=== PATIENT | female | born 1935 | race Caucasian/White ===

== ENCOUNTER 2018-02-27 11:55 | Inpatient (IN) | payer MEDICARE ==
[~2018-02-27] VITALS: Ht 162.6 cm; Wt 48.3 kg
--- NOTE | 2018-02-27 12:24 | PHYS DOC ---
Past History Past Medical History: Hypertension, Hypothyroid Adult General Chief Complaint Chief Complaint: PSYCH EVALUATION HPI HPI Patient is a [82] year old female who presents with anxiety. Patient is here for medical clearance for the [facility] unit. Patient has had anxiety issues for the past 4 years that got worse this time of the year since her 4 years ago in February. Patient denies any self- medication with drugs or alcohol beyond what is prescribed. Patient denies any chest pain or palpitations. Patient denies any self-harm or homicidal ideation. Patient receives minimal relief with her prescribed benzodiazepines.[] Review of Systems Review of Systems Constitutional: Denies fever or chills [] Eyes: Denies change in visual acuity, redness, or eye pain [] HENT: Denies nasal congestion or sore throat [] Respiratory: Denies cough or shortness of breath [] Cardiovascular: No chest pain or palpitations[] GI: Denies abdominal pain, nausea, vomiting, bloody stools or diarrhea [] : Denies dysuria or hematuria [] Musculoskeletal: Denies back pain or joint pain [] Integument: Denies rash or skin lesions [] Neurologic: Denies headache, focal weakness or sensory changes [] Endocrine: Denies polyuria or polydipsia [] All other systems were reviewed and found to be within normal limits, except as documented in this note. Allergies Allergies Allergies Coded Allergies Type Severity Reaction Last Updated Verified Amufnse-Smx-Tsz Reductase Inhibitor Allergy Unknown 02/27/18 Yes Sulfa (Sulfonamide Antibiotics) Allergy Unknown 02/27/18 Yes ciprofloxacin Allergy Unknown 02/27/18 Yes tramadol Allergy Unknown 02/27/18 Yes Physical Exam Physical Exam Constitutional: Well developed, well nourished, no acute distress, non-toxic appearance. [] HENT: Normocephalic, atraumatic, bilateral external ears normal, oropharynx moist, no oral exudates, nose normal. [] Eyes: PERRLA, EOMI, conjunctiva normal, no discharge. [] Neck: Normal range of motion, no tenderness, supple, no stridor. [] Cardiovascular:Heart rate regular rhythm, no murmur [] Lungs & Thorax: Bilateral breath sounds clear to auscultation [] Abdomen: Bowel sounds normal, soft, no tenderness, no masses, no pulsatile masses. [] Skin: Warm, dry, no erythema, no rash. [] Back: No tenderness, no CVA tenderness. [] Extremities: No tenderness, no cyanosis, no clubbing, ROM intact, no edema. [] Neurologic: Alert and oriented X 3, normal motor function, normal sensory function, no focal deficits noted. [] Psychologic: Affect normal, judgement normal, mood normal. [] EKG EKG EKG shows a sinus rhythm at 72/m occasional PAC. Normal axis, QTC of 411 milliseconds, no ST elevation.[] Radiology/Procedures Radiology/Procedures [] Course & Med Decision Making Course & Med Decision Making Pertinent Labs and Imaging studies reviewed. (See chart for details) ED course: Patient arrived, was placed in bed, and tolerated exam well. Patient remained stable throughout her emergency department stay. Discussed laboratory findings with patient and family who voiced understanding. All questions were answered Medical decision making: Patient was here for medical clearance for the geriatric mental health unit. There is no evidence of a medical reason for admission at this time. TSH level is pending given her history of hypothyroidism. Patient appears to be stable for mental health evaluation and treatment.[] Dragon Disclaimer Dragon Disclaimer This electronic medical record was generated, in whole or in part, using a voice recognition dictation system. Departure Departure: Impression: Primary Impression: Anxiety Disposition: ADMITTED INPATIENT Admitting Physician: Other Condition: STABLE Referrals: NON,STAFF (PCP) SANDER OGLESBY DO Feb 27, 2018 12:24
[2018-02-27 12:31] LABS: BASO % 1 % (0-3); EOS # 0.1 x10^3/uL (0.0-0.7); EOS % 2 % (0-3); HEMATOCRIT 44.6 % (36.0-47.0); LYMPH % 16 % (24-48); MEAN CORPUSCULAR HEMOGLOBIN 29 pg (25-35); MEAN CORPUSCULAR HGB CONC 34 g/dL (31-37); MEAN CORPUSCULAR VOLUME 87 fL (79-100); MONO # 0.8 x10^3/uL (0.0-1.1); MONO % 12 % (0-9); NEUT # 4.5 x10^3uL (1.8-7.7); NEUT % 70 % (31-73); PLATELET COUNT 345 x10^3/uL (140-400); RED BLOOD COUNT 5.14 x10^6/uL (3.50-5.40); RED CELL DISTRIBUTION WIDTH 13.9 % (11.5-14.5); WHITE BLOOD COUNT 6.4 x10^3/uL (4.0-11.0)
[2018-02-27 12:42] LABS: ALBUMIN 3.9 g/dL (3.4-5.0); CALCIUM 9.7 mg/dL (8.5-10.1); GFR 53.3; MAGNESIUM 2.3 mg/dL (1.8-2.4); POTASSIUM 3.5 mmol/L (3.5-5.1); TOTAL BILIRUBIN 0.2 mg/dL (0.2-1.0); TOTAL PROTEIN 7.9 g/dL (6.4-8.2)
[2018-02-27 13:24] LABS: BILIRUBIN,URINE NEG (NEG); CLARITY,URINE CLEAR; COLOR,URINE STRAW; GLUCOSE,URINE NEG (NEG)
[2018-02-27 13:25] LABS: BACTERIA,URINE 0 /HPF (0-FEW); NITRITE,URINE NEG (NEG); RBC,URINE 0 /HPF (0-2); SQUAMOUS EPITHELIAL CELL,UR OCC /LPF; UROBILINOGEN,URINE 0.2 mg/dL (0.2 mg/dL); WBC,URINE RARE /HPF (0-4)
[2018-02-27] MEDS ORDERED: METHYL SALICYLATE/MENTHOL TOPICAL OINTMENT 29GM TUBE. TP PRN (14:45)
[2018-02-27] MEDS ORDERED: MAGNESIUM HYDROXIDE 2,400 MG/30 ML ORAL.SUSP. PO PRN (14:45)
[2018-02-27] MEDS ORDERED: ACETAMINOPHEN 325 MG TABLET PO PRN (14:45)
[2018-02-27] MEDS ORDERED: LEVO25TA4 PO (15:01)
[2018-02-27] MEDS ORDERED: MIRT30TA PO (15:01)
[2018-02-27] MEDS ORDERED: ALPR2TAB2 PO (15:01)
[2018-02-27] MEDS ORDERED: HYDR-2155 PO (15:01)
[2018-02-27] MEDS ORDERED: DOCU-109 PO (15:01)
[2018-02-27] MEDS ORDERED: METO50TA29 PO (15:01)
[2018-02-27] MEDS ORDERED: AMLO5TAB7 PO (15:01)
[2018-02-27] MEDS ORDERED: LOSA100T14 PO (15:01)
[2018-02-27] MEDS ORDERED: POLY17PO5 PO (15:01)
[2018-02-27] MEDS ORDERED: CLON1TAB PO (15:01)
[2018-02-27] MEDS ORDERED: SUCR1TAB PO (15:01)
[2018-02-27] MEDS ORDERED: PARO40TA3 PO (15:01)
[2018-02-27] MEDS ORDERED: HYDROcodone/APAP 5/325MG 1 TAB TABLET PO PRN (15:15)
[2018-02-27] MEDS ORDERED: METOPROLOL SUCCINATE PO PRN (15:15)
[2018-02-27] MEDS ORDERED: CLONAZEPAM PO PRN (15:15)
[2018-02-27] MEDS: DOCUSATE SODIUM 100 MG CAPSULE PO SCH (15:30)
[2018-02-27] MEDS ORDERED: METO25TA4 PO (15:54)
[2018-02-27] MEDS ORDERED: SENN-37 PO (15:54)
[2018-02-27 15:55] VITALS: BP 122/74
[2018-02-27] MEDS ORDERED: SENNOSIDES/DOCUSATE 8.6/50MG TABLET. PO PRN (16:15)
[2018-02-27] MEDS ORDERED: AMLO10TA6 PO (16:27)
[2018-02-27] MEDS ORDERED: MIRTAZAPINE 30 MG TABLET PO SCH (17:00)
[2018-02-27] MEDS ORDERED: NON FORMULARY ITEM (Alprazolam (Xanax) 1 TAB) PO SCH (17:00)
[2018-02-27] MEDS: clonazePAM 1 MG TABLET PO SCH ×2 (18:20→20:37)
[2018-02-27 20:36] VITALS: BP 114/75
[2018-02-27] MEDS: LOSARTAN 50 MG TABLET. PO SCH (20:37)
[2018-02-27] MEDS: MIRTAZAPINE 30 MG TABLET PO SCH (20:37)
[2018-02-27] MEDS ORDERED: SUCRALFATE 1 GM TABLET. PO SCH (21:00)
[2018-02-28] MEDS: MAG HYDROX/AL HYDROX/SIMETH 30 ML ORAL.SUSP PO PRN (00:27)
[2018-02-28 05:53] VITALS: BP 100/65
[2018-02-28] MEDS ORDERED: NON FORMULARY ITEM (Levothyroxine Sodium 1 TAB) PO SCH (06:00)
[2018-02-28] MEDS: LEVOTHYROXINE 25 MCG TABLET. PO SCH (06:20)
[2018-02-28] MEDS: DOCUSATE SODIUM 100 MG CAPSULE PO SCH (07:53)
[2018-02-28] MEDS: LOSARTAN 50 MG TABLET. PO SCH ×2 (07:53→20:40)
[2018-02-28] MEDS: clonazePAM 1 MG TABLET PO SCH ×2 (07:55→14:00)
[2018-02-28] MEDS ORDERED: amLODIPine BESYLATE 10 MG TABLET PO PRN (09:00)
[2018-02-28] MEDS ORDERED: POLYETHYLENE GLYCOL 3350 17 GM PACKET. PO SCH (09:00)
[2018-02-28] MEDS ORDERED: NON FORMULARY ITEM (Paroxetine Hcl 1 TAB) PO SCH (09:00)
[2018-02-28] MEDS ORDERED: LOSARTAN 50 MG TABLET. PO SCH (09:00)
[2018-02-28] MEDS ORDERED: AMLODIPINE BESYLATE PO SCH (09:00)
[2018-02-28 09:58] VITALS: BP 102/67
--- NOTE | 2018-02-28 10:16 | RAD ---
Right wrist x-rays 3 views HISTORY: Fall, right wrist pain. FINDINGS: No fracture or dislocation of the radius. Mild osteoarthritic change with mild osteophyte of the first carpal metacarpal joint. Bone demineralization may be osteopenia or osteoporosis. The soft tissues are unremarkable. IMPRESSION: No acute osseous injury. Right ankle x-rays 3 views HISTORY: Fall, ankle twisting injury, ankle pain. FINDINGS: Mild bone demineralization could be osteopenia or osteoporosis. There is a subtle trabecular bone lucency of the lateral malleolus inferiorly with extension into the lateral cortex on the oblique film raising suspicion of a nondisplaced acute traumatic fracture. Medial malleolus and tibial plafond intact. No talus osteochondral lesion evident. IMPRESSION: Subtle linear lucency likely a hairline acute traumatic fracture of the lateral malleolus. No distracted fracture evident. Electronically signed by: Bora Burger MD (02/28/2018 10:12 AM) [facility]
[2018-02-28 15:07] LABS: THYROXINE 9.6 ug/dL (4.5-12.0)
[2018-02-28] MEDS: HYDROcodone/APAP 5/325MG 1 TAB TABLET PO PRN (15:36)
[2018-02-28 16:15] VITALS: BP 118/73
[2018-02-28] MEDS: SENNOSIDES/DOCUSATE 8.6/50MG TABLET. PO SCH (18:06)
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
[2018-02-28 20:40] VITALS: BP 102/69
[2018-02-28] MEDS: clonazePAM 2 MG TABLET PO SCH (20:42)
[2018-02-28] MEDS: GABAPENTIN 100 MG CAPSULE. PO SCH (20:42)
[2018-02-28] MEDS: MIRTAZAPINE 30 MG TABLET PO SCH (20:42)
--- NOTE | 2018-02-28 21:30 | CONS ---
DATE OF CONSULTATION: 02/28/2018 REASON FOR CONSULTATION: Medical management. HISTORY OF PRESENT ILLNESS: The patient was is an 82-year-old female patient, who was admitted to [facility] for anxiety. She apparently has been having issues with anxiety for the last 30 years. She was admitted in 2011 to [place] for about 16 days and apparently her about 4 years ago around this time of the year and the patient, however, denied any self medication with drugs or alcohol beyond what is prescribed. Denied any chest pain or palpitation and was admitted. Denied any self-harm or homicidal ideation and she received minimal relief from her prescribed benzodiazepine, and therefore, was admitted to this unit for inpatient psychiatric stabilization. PAST MEDICAL HISTORY: Significant for hypertension, hyperlipidemia, left coronary artery disease status post PCI with stent deployment, hypothyroidism, TIA x 2. PAST SURGICAL HISTORY: Significant for cholecystectomy, partial small-bowel resection, drainage of rectal abscess, bladder sling, appendectomy and unilateral oophorectomy. She also fell and broke her right shoulder and did not require any surgical treatment. ALLERGIES: SHE IS ALLERGIC TO STATINS. SHE IS ALLERGIC TO SULFA, CIPROFLOXACIN, GLUTEN, LACTOSE, TRAMADOL. MEDICATIONS: She is currently on following medications: She is on metoprolol tartrate 25 mg twice a day, amlodipine besylate 5 mg once a day, amlodipine 10 mg once a day, losartan potassium 100 mg twice a day, clonazepam 1 mg 4 times a day, mirtazapine 45 mg at bedtime, Senna-S 1 tablet once a day, levothyroxine sodium 25 mcg once a day. FAMILY HISTORY: She has one brother at the age of 60 because of myocardial infarction. Her father at the age of 65 because of lung cancer and mother in her early 80s because of myocardial infarction. SOCIAL HISTORY: She is . She has 2 sons and 1 daughter. She never smoked, does not drink alcohol or use any recreational drugs. She is retired after working multiple jobs. REVIEW OF SYSTEMS: As per history of present illness. PHYSICAL EXAMINATION GENERAL: When I examined her, she looked well and was clearly in no apparent respiratory distress. No pallor, jaundice, cyanosis, or thyromegaly. No jugular venous distension. No limb edema. VITAL SIGNS: Her heart rate was 71, blood pressure 100/65, temperature was 97.9, respiratory rate was 16 and oxygen saturation was 97%. HEAD, EYES, EARS, NOSE AND THROAT: Showed normocephalic, atraumatic. NECK: Supple. HEART: Showed normal first and second heart sounds. No gallop, rub or murmur. CHEST: Clear to auscultation. No crepitation or rhonchi. ABDOMEN: Distended, soft, nontender. No guarding or rigidity. No organomegaly. Hernial orifice intact. Bowel sounds normal. NEUROLOGIC: She was awake, alert, responding appropriately. All cranial nerves intact. EXTREMITIES: She moves extremities without difficulty. She unfortunately fell sustaining a hairline fracture of her lateral malleolus with no distracted fracture evident and we spoke with Dr. Collazo, the orthopedic surgeon who recommended using Cam boot and she can weightbear as tolerated and to see him in 2 weeks in his clinic. LABORATORY DATA: Showed a white cell count of 6400, hemoglobin 15, hematocrit 45, MCV 87 and platelet count of 345,000. Her chemistry showed a serum sodium 142, potassium 3.5, chloride 104, bicarbonate 27, anion gap of 11, BUN 11, creatinine 1, estimated GFR was 53 mL per minute. Her glucose was 93, calcium was 9.7, magnesium 2.3. Serum iron 60, TIBC was 275. Iron saturation was 22%. Her total bilirubin, AST, ALT, alkaline phosphatase were normal. Total protein was 7.9, albumin was 3.9. Her triglycerides were 92. Total cholesterol 187, LDL was 107, VLDL was 18 and HDL cholesterol was 62, the ratio was 3. Her TSH and total T4 and total T3 are all within normal range. Urinalysis was essentially unremarkable and her wrist x-ray showed that there is no acute osseous injury; however, the x-ray of her right ankle joint showed that she has a subtle linear lucency likely hairline acute traumatic fracture of the lateral malleolus for which we ordered a Cam boot. IMPRESSION AND PLAN: So all in all, this is an 82-year-old female patient, who was admitted with anxiety. All her lab works and vital signs are within acceptable range. I will obviously review all the lab works that are still pending at the time of this dictation and make any necessary recommendation. Thank you, Dr. Strickland for allowing me to participate in the care of this patient. KELSIE GEE MD DR: Grace JOB#: [id number] / [id number]
[2018-03-01 00:10] LABS: HEMOGLOBIN A1C 5.3 % (4.8-5.6)
[2018-03-01 05:55] VITALS: BP 121/82
[2018-03-01] MEDS: LEVOTHYROXINE 25 MCG TABLET. PO SCH (06:27)
[2018-03-01] MEDS: DOCUSATE SODIUM 100 MG CAPSULE PO SCH (08:07)
[2018-03-01] MEDS: clonazePAM 1 MG TABLET PO SCH (08:07)
[2018-03-01] MEDS: GABAPENTIN 100 MG CAPSULE. PO SCH ×2 (08:07→20:47)
[2018-03-01] MEDS: SENNOSIDES/DOCUSATE 8.6/50MG TABLET. PO SCH (08:07)
[2018-03-01] MEDS: LOSARTAN 50 MG TABLET. PO SCH ×2 (08:08→20:45)
[2018-03-01 15:49] VITALS: BP 110/74
[2018-03-01] MEDS: busPIRone 5 MG TABLET. PO SCH ×2 (16:55→20:48)
[2018-03-01] MEDS: MIRTAZAPINE 30 MG TABLET PO SCH (20:44)
[2018-03-01] MEDS: DIVALPROEX 125 MG CAP.SPRINK PO SCH (20:47)
[2018-03-01] MEDS: clonazePAM 2 MG TABLET PO SCH (20:47)
--- NOTE | 2018-03-01 23:50 | PN ---
DATE: 03/01/2018 SUBJECTIVE: The patient was seen today. I met with the staff and chart reviewed. The patient continues to be anxious and worried, staying in bed, continues to complain of severe anxiety. She is also irritable and wells. The patient is also very obsessive and compulsive with the thinking pattern. The patient focused on number of the pills she has been taking and also the patient still complains that she is still anxious and needing more medications. OBSERVATION: VITAL SIGNS: Temperature 97.9, blood pressure 121/82, pulse 82, respirations 16, O2 sat 97%. Slept about 8 hours last night. The patient's appetite is fair. The patient still has difficulty walking because of the pain in her right ankle. Apparently, she twisted her ankle. Apparently, she has a hairline fracture of the right malleolus. The patient appears depressed. The patient also irritable and wells. The patient also having problems with concentration and thinking. The patient's current medications include Depakote added today 125 mg b.i.d. because of the patient's complaint of intense anxiety, not able to relax. The patient was also started on BuSpar 5 mg q.i.d. The patient is also on gabapentin 100 mg b.i.d. She is also on Klonopin 1 mg in the morning and 2 mg at night, mirtazapine 45 mg at night. The patient made aware of her past dependence on benzodiazepines. Apparently, she was taking Xanax 6 mg daily for the past 30 years. Later on, it was switched to Klonopin. She was taking up to 4 mg daily. The patient is struggling to deal with the decrease of the benzodiazepines and the patient is also aware that she has been dependent on it for many, many years. LABORATORY DATA: The patient's lab reviewed. No significant change since admission. ASSESSMENT: Dysthymic disorder, generalized anxiety disorder, benzodiazepine dependence, mood disorder, unspecified. PLAN: To continue with the current treatment plan and we will continue to evaluate her medication side effects. NICO DOS SANTOS MD DR: CHAIM/rico JOB#: [id number] / [id number]
[2018-03-02] MEDS: MAG HYDROX/AL HYDROX/SIMETH 30 ML ORAL.SUSP PO PRN ×2 (02:30→08:33)
[2018-03-02 05:46] VITALS: BP 119/82
[2018-03-02] MEDS: LEVOTHYROXINE 25 MCG TABLET. PO SCH (05:57)
--- NOTE | 2018-03-02 06:05 | EKG ---
[address] [address] Test Date: 2018-03-02 Test Time: 06:02:24 Pat Name: ETTA ORTIZ Department: Room: [address] [place] [address] Gender: F Skin Washer: : 1935 Requested By: KELSIE GEE Order Number: [id number] Reading MD: Dread Mitchell Measurements Intervals [place] Rate: 65 P: ID: QRS: 14 QRSD: 58 T: 133 QT: 370 QTc: 385 Interpretive Statements SINUS RHYTHM LOW LIMB LEAD VOLTAGE Electronically Signed On 03-09-2018 9:54:56 SALESPERSON NECKTIES by Dread Mitchell
[2018-03-02] MEDS: DOCUSATE SODIUM 100 MG CAPSULE PO SCH (08:24)
[2018-03-02] MEDS: DIVALPROEX 125 MG CAP.SPRINK PO SCH ×2 (08:24→20:33)
[2018-03-02] MEDS: amLODIPine BESYLATE 5 MG TABLET PO PRN (08:24)
[2018-03-02] MEDS: GABAPENTIN 100 MG CAPSULE. PO SCH ×2 (08:24→20:33)
[2018-03-02] MEDS: SENNOSIDES/DOCUSATE 8.6/50MG TABLET. PO SCH (08:24)
[2018-03-02] MEDS: clonazePAM 1 MG TABLET PO SCH (08:24)
[2018-03-02] MEDS: LOSARTAN 50 MG TABLET. PO SCH ×2 (08:25→20:33)
[2018-03-02] MEDS: busPIRone 5 MG TABLET. PO SCH ×4 (08:26→20:33)
[2018-03-02 16:13] VITALS: BP 114/80
[2018-03-02] MEDS: MIRTAZAPINE 30 MG TABLET PO SCH (20:33)
[2018-03-02] MEDS: clonazePAM 2 MG TABLET PO SCH (20:33)
--- NOTE | 2018-03-02 23:38 | PN ---
DATE: 03/02/2018 SUBJECTIVE: The patient was seen today, met with the staff. The patient continues to be anxious, worried, but slight improvement. She is also having some mood swings, irritability. The patient is mainly focusing on her physical complaints. The patient is able to walk with a walker. OBSERVATION: VITAL SIGNS: Temperature 97.9, blood pressure 119/82, pulse 69, respirations 18, and O2 sat 95%. Slept about 5 hours last night. The patient admits to feeling depressed. The patient states she is in chronic pain. The patient is also having difficulty with concentration at times. The patient is constantly focused on her physical complaints. The patient is not admitting to having any psychotic symptoms at this time. MEDICATIONS: Reviewed. Currently on Depakote 125 mg b.i.d., BuSpar 5 mg q.i.d., Klonopin 1 mg daily, gabapentin 100 mg b.i.d. Also, clonazepam 2 mg at night, mirtazapine 45 mg at night. The patient is not having any side effects to the medications. The patient is aware that her Klonopin will be gradually decreased over a period of time and substitute other medications to control her symptoms, which are not addictive. The patient has a long history of benzodiazepine dependence. The patient has not had any falls. The patient is most of the time cooperative, taking her medications, but she is curious, wanting to know everything what she is taking and not trusting anyone. ASSESSMENT: 1. Dysthymic disorder. 2. Generalized anxiety disorder. 3. Benzodiazepine dependence. 4. Cognitive disorder, mild. PLAN: To continue with the treatment. NICO DOS SANTOS MD DR: CHAIM/rico JOB#: [id number] / [id number]
[2018-03-03 05:47] VITALS: BP 114/77
[2018-03-03] MEDS: SENNOSIDES/DOCUSATE 8.6/50MG TABLET. PO SCH (07:51)
[2018-03-03] MEDS: LEVOTHYROXINE 25 MCG TABLET. PO SCH (07:51)
[2018-03-03] MEDS: busPIRone 5 MG TABLET. PO SCH ×4 (07:51→19:22)
[2018-03-03] MEDS: DOCUSATE SODIUM 100 MG CAPSULE PO SCH (07:51)
[2018-03-03] MEDS: LOSARTAN 50 MG TABLET. PO SCH ×2 (07:52→19:23)
[2018-03-03] MEDS: GABAPENTIN 100 MG CAPSULE. PO SCH ×2 (07:52→19:22)
[2018-03-03] MEDS: DIVALPROEX 125 MG CAP.SPRINK PO SCH ×2 (07:52→19:22)
[2018-03-03] MEDS: clonazePAM 1 MG TABLET PO SCH (07:53)
[2018-03-03] MEDS: MAG HYDROX/AL HYDROX/SIMETH 30 ML ORAL.SUSP PO PRN ×2 (11:55→22:01)
[2018-03-03 16:01] VITALS: BP 111/73
[2018-03-03] MEDS: MIRTAZAPINE 30 MG TABLET PO SCH (19:22)
[2018-03-03] MEDS: clonazePAM 2 MG TABLET PO SCH (19:23)
--- NOTE | 2018-03-04 02:36 | PN ---
DATE: 03/03/2018 SUBJECTIVE: The patient was seen today, met with the staff, chart reviewed. The patient continues to have mood swings, irritability and somatic preoccupation, having multiple physical complaints. The patient is able to walk with a walker. OBSERVATION: VITAL SIGNS: Temperature 97, blood pressure 114/77, pulse 60, respirations 16, O2 sat 95%. MENTAL STATUS: Slept about 7 hours last night. The patient's appetite has improved. The patient is still having difficulty with her attention span and concentration, having problems focusing. The patient constantly preoccupied with her physical complaints. MEDICATIONS: Reviewed. LABORATORY DATA: Reviewed. Not having any side effects. Continue with the current medications. The patient continues to have anxiety, restlessness feeling insecure, worried and having different physical complaints. PLAN: Continue with the treatment. NICO DOS SANTOS MD DR: CHAIM/rico JOB#: [id number] / [id number]
[2018-03-04] MEDS: MAG HYDROX/AL HYDROX/SIMETH 30 ML ORAL.SUSP PO PRN ×2 (04:05→20:46)
[2018-03-04 05:35] VITALS: BP 113/79
[2018-03-04] MEDS: LEVOTHYROXINE 25 MCG TABLET. PO SCH (06:05)
[2018-03-04] MEDS: DOCUSATE SODIUM 100 MG CAPSULE PO SCH (07:55)
[2018-03-04] MEDS: clonazePAM 1 MG TABLET PO SCH (07:56)
[2018-03-04] MEDS: SENNOSIDES/DOCUSATE 8.6/50MG TABLET. PO SCH (07:56)
[2018-03-04] MEDS: GABAPENTIN 100 MG CAPSULE. PO SCH ×2 (07:56→19:44)
[2018-03-04] MEDS: DIVALPROEX 125 MG CAP.SPRINK PO SCH ×2 (07:56→19:44)
[2018-03-04] MEDS: busPIRone 5 MG TABLET. PO SCH (07:56)
[2018-03-04] MEDS: LOSARTAN 50 MG TABLET. PO SCH ×2 (07:56→19:45)
[2018-03-04] MEDS: busPIRone 10 MG TABLET. PO SCH ×2 (13:07→19:44)
[2018-03-04 16:32] VITALS: BP 99/70
--- NOTE | 2018-03-04 19:03 | PN ---
DATE: 03/04/2018 SUBJECTIVE: The patient was seen today, met with the staff, chart reviewed. The patient continues to have high level of anxiety, multiple somatic complaints. The patient is able to walk with a walker. OBSERVATION: VITAL SIGNS: Temperature 97.4, blood pressure 113/79, pulse 69, respirations 16, O2 sats is 96%. Slept about 8 hours last night. The patient's medications reviewed and also, lab reviewed. The patient apparently making some progress, still preoccupied with the past issues, constantly worrying and drooling in the past. ASSESSMENT: 1. Dysthymic disorder. 2. Generalized anxiety disorder. 3. Benzodiazepine dependence. 4. Cognitive disorder, mild. PLAN: Continue with the treatment. NICO DOS SANTOS MD DR: CHAIM/rico JOB#: [id number] / [id number]
[2018-03-04] MEDS: clonazePAM 2 MG TABLET PO SCH (19:44)
[2018-03-04] MEDS: MIRTAZAPINE 30 MG TABLET PO SCH (19:44)
[2018-03-05] MEDS: LEVOTHYROXINE 25 MCG TABLET. PO SCH (05:55)
[2018-03-05 06:06] VITALS: BP 96/61
[2018-03-05] MEDS: GABAPENTIN 100 MG CAPSULE. PO SCH ×2 (07:50→20:02)
[2018-03-05] MEDS: clonazePAM 1 MG TABLET PO SCH (07:51)
[2018-03-05] MEDS: SENNOSIDES/DOCUSATE 8.6/50MG TABLET. PO SCH (07:51)
[2018-03-05] MEDS: busPIRone 10 MG TABLET. PO SCH ×3 (07:51→20:02)
[2018-03-05] MEDS: DOCUSATE SODIUM 100 MG CAPSULE PO SCH (07:51)
[2018-03-05] MEDS: LOSARTAN 50 MG TABLET. PO SCH ×2 (07:51→20:03)
[2018-03-05] MEDS: DIVALPROEX 125 MG CAP.SPRINK PO SCH ×2 (07:52→20:02)
[2018-03-05 15:56] VITALS: BP 100/69
[2018-03-05] MEDS: MIRTAZAPINE 30 MG TABLET PO SCH (20:02)
[2018-03-05] MEDS: clonazePAM 2 MG TABLET PO SCH (20:02)
--- NOTE | 2018-03-05 22:08 | PN ---
DATE: 03/05/2018 SUBJECTIVE: The patient was seen today, met with the staff, chart reviewed. Staff reports no major behavior problems today. She has been pleasant, withdrawn, cooperative, compliant with the treatment. She slept well last night. OBSERVATION: VITAL SIGNS: Temperature 97.8, blood pressure 100/69, pulse 73, respirations 16, O2 sat 96%. The patient slept about 7 hours last night. The patient's appetite improved. ASSESSMENT: Dysthymic disorder, generalized anxiety disorder, benzodiazepine dependence, cognitive disorder, mild. PLAN: To continue with the treatment. NICO DOS SANTOS MD DR: CHAIM/rico JOB#: [id number] / [id number]
[2018-03-06] MEDS: MAG HYDROX/AL HYDROX/SIMETH 30 ML ORAL.SUSP PO PRN (01:54)
[2018-03-06 05:38] VITALS: BP 142/79
[2018-03-06] MEDS: LEVOTHYROXINE 25 MCG TABLET. PO SCH (06:09)
[2018-03-06] MEDS: PANTOPRAZOLE 40 MG TABLET. PO SCH (06:10)
[2018-03-06] MEDS: LOSARTAN 50 MG TABLET. PO SCH ×2 (06:10→19:47)
[2018-03-06] MEDS: busPIRone 10 MG TABLET. PO SCH ×3 (07:50→19:47)
[2018-03-06] MEDS: clonazePAM 1 MG TABLET PO SCH (07:51)
[2018-03-06] MEDS: DOCUSATE SODIUM 100 MG CAPSULE PO SCH (07:51)
[2018-03-06] MEDS: DIVALPROEX 125 MG CAP.SPRINK PO SCH ×2 (07:51→19:47)
[2018-03-06] MEDS: GABAPENTIN 100 MG CAPSULE. PO SCH ×2 (07:51→19:48)
[2018-03-06 08:21] LABS: BASO % 1 % (0-3); EOS # 0.3 x10^3/uL (0.0-0.7); EOS % 5 % (0-3); HEMATOCRIT 40.8 % (36.0-47.0); HEMOGLOBIN 13.4 g/dL (12.0-15.5); LYMPH # 1.5 x10^3/uL (1.0-4.8); LYMPH % 24 % (24-48); MEAN CORPUSCULAR HEMOGLOBIN 28 pg (25-35); MEAN CORPUSCULAR HGB CONC 33 g/dL (31-37); MEAN CORPUSCULAR VOLUME 87 fL (79-100); MONO # 0.8 x10^3/uL (0.0-1.1); MONO % 13 % (0-9); NEUT # 3.5 x10^3uL (1.8-7.7); NEUT % 57 % (31-73); PLATELET COUNT 283 x10^3/uL (140-400); RED BLOOD COUNT 4.72 x10^6/uL (3.50-5.40); RED CELL DISTRIBUTION WIDTH 13.8 % (11.5-14.5); WHITE BLOOD COUNT 6.1 x10^3/uL (4.0-11.0)
[2018-03-06 08:36] LABS: ALBUMIN 3.4 g/dL (3.4-5.0); ALBUMIN/GLOBULIN RATIO 0.9 (1.0-1.7); CALCIUM 9.1 mg/dL (8.5-10.1); CREATININE 0.9 mg/dL (0.6-1.0); GFR 60.2; POTASSIUM 4.2 mmol/L (3.5-5.1); TOTAL BILIRUBIN 0.3 mg/dL (0.2-1.0); TOTAL PROTEIN 7.1 g/dL (6.4-8.2)
[2018-03-06] MEDS ORDERED: SENNOSIDES/DOCUSATE 8.6/50MG TABLET. PO SCH (09:00)
[2018-03-06] MEDS ORDERED: CHOLECALCIFEROL (VITAMIN D3) 50,000 UNIT CAPSULE PO SCH (09:00)
[2018-03-06] MEDS ORDERED: LOPERAMIDE 2 MG CAPSULE PO PRN (10:30)
[2018-03-06 15:52] VITALS: BP 133/67
[2018-03-06] MEDS: MIRTAZAPINE 30 MG TABLET PO SCH (19:48)
[2018-03-06] MEDS: clonazePAM 2 MG TABLET PO SCH (19:48)
--- NOTE | 2018-03-06 22:10 | PN ---
DATE: 03/06/2018 SUBJECTIVE: The patient was seen today, met with the staff, chart reviewed. The patient continues to show improvement. Still withdrawn, but compliant with the treatment. OBSERVATION: VITAL SIGNS: Temperature 97.9, blood pressure 133/67, pulse 66, respirations 20, O2 sat 95%. She is sleeping well. Her appetite has improved. ASSESSMENT: Dysthymic disorder, generalized anxiety disorder, benzodiazepine dependence and cognitive disorder, mild. PLAN: The patient is still feeling insecure, restless at times, also having some obsessive-compulsive behaviors. She is not having any major issues at this point. NICO DOS SANTOS MD DR: CHAIM/rico JOB#: [id number] / [id number]
[2018-03-07] MEDS: LEVOTHYROXINE 25 MCG TABLET. PO SCH (04:53)
[2018-03-07 05:36] VITALS: BP 115/76
[2018-03-07] MEDS: DIVALPROEX 125 MG CAP.SPRINK PO SCH ×2 (07:46→21:13)
[2018-03-07] MEDS: busPIRone 10 MG TABLET. PO SCH ×3 (07:46→21:12)
[2018-03-07] MEDS: LOSARTAN 50 MG TABLET. PO SCH ×2 (07:46→21:12)
[2018-03-07] MEDS: METOPROLOL TART IMMED RELEASE 25 MG TABLET PO PRN (07:47)
[2018-03-07] MEDS: DOCUSATE SODIUM 100 MG CAPSULE PO SCH (07:47)
[2018-03-07] MEDS: amLODIPine BESYLATE 5 MG TABLET PO PRN (07:47)
[2018-03-07] MEDS: PANTOPRAZOLE 40 MG TABLET. PO SCH (07:47)
[2018-03-07] MEDS: GABAPENTIN 100 MG CAPSULE. PO SCH ×2 (07:47→21:13)
[2018-03-07] MEDS: clonazePAM 1 MG TABLET PO SCH (07:48)
--- NOTE | 2018-03-07 12:59 | PN ---
DATE: 03/07/2018 SUBJECTIVE: The patient was seen today, met with the staff, chart reviewed. Staff reports, no major problems. The patient continues to complain of increased anxiety, constantly worrying and preoccupied with the stomach problems and also focusing on the medication. OBSERVATION: VITAL SIGNS: Temperature 97, blood pressure 115/76, pulse 56, respirations 16 and O2 sat 96%. Slept about 8 hours last night. MEDICATIONS: The patient's medications reviewed. Currently, on Depakote 125 mg daily and 250 mg at night, BuSpar 10 mg t.i.d., Klonopin 1 mg daily, gabapentin 100 mg twice a day, Klonopin 2 mg at night, mirtazapine 45 mg at night. The patient is not having any side effects. The patient's lab reviewed, no change. The patient is not having any physical complaints except for complaining of abdominal pain and cramping. ASSESSMENT: 1. Dysthymic disorder. 2. Generalized anxiety disorder. 3. Benzodiazepine dependence. 4. Cognitive disorder, mild. PLAN: To continue with the treatment. The patient discussed about the discharge plan and the patient states her daughter will be visiting next week and she is planning to take her home just prior to [place]. NICO DOS SANTOS MD DR: CHAIM/rico JOB#: [id number] / [id number]
[2018-03-07 16:51] VITALS: BP 109/72
[2018-03-07 21:00] VITALS: BP 117/78
[2018-03-07] MEDS: MIRTAZAPINE 30 MG TABLET PO SCH (21:12)
[2018-03-07] MEDS: clonazePAM 2 MG TABLET PO SCH (21:12)
[2018-03-08] MEDS: LEVOTHYROXINE 25 MCG TABLET. PO SCH (04:53)
[2018-03-08 06:02] VITALS: BP 118/74
[2018-03-08] MEDS: PANTOPRAZOLE 40 MG TABLET. PO SCH (06:20)
[2018-03-08] MEDS: LOSARTAN 50 MG TABLET. PO SCH ×2 (08:07→20:37)
[2018-03-08] MEDS: DOCUSATE SODIUM 100 MG CAPSULE PO SCH (08:08)
[2018-03-08] MEDS: busPIRone 10 MG TABLET. PO SCH ×3 (08:08→20:37)
[2018-03-08] MEDS: DIVALPROEX 125 MG CAP.SPRINK PO SCH ×2 (08:10→20:38)
[2018-03-08] MEDS: GABAPENTIN 100 MG CAPSULE. PO SCH ×2 (08:14→20:37)
[2018-03-08] MEDS: clonazePAM 1 MG TABLET PO SCH (08:14)
[2018-03-08 15:47] VITALS: BP 126/73
--- NOTE | 2018-03-08 19:46 | PDOC ---
Exam Note: Jimmy Note: Please also refer to the separate dictated note~for this date of service dictated separately.~Patient seen individually. Discussed the patient with Nursing staff reviewed the chart.~Reviewed interim history and current functioning. Reviewed vital signs,~Labs/ Radiology~and current medications noted below. Continue current treatment with the changes noted in the dictated addendum note Assessment: Vital Signs: Vital Signs Date Time Temp Pulse Resp B/P (MAP) Pulse Ox O2 Delivery O2 Flow Rate FiO2 03/08/18 15:47 97.0 71 16 126/73 (90) 98 03/07/18 05:36 Room Air I&O Intake and Output 03/08/18 07:00 Intake Total 1180 ml Balance 1180 ml Intake Oral 1180 ml Current Medications: Meds: Current Medications Acetaminophen (Tylenol) 650 mg PRN Q6HRS PRN PO PAIN / TEMP Last administered on 02/28/18at 10:37; Start 02/27/18 at 14:45 Multi-Ingredient Ointment (Analgesic [place]) 1 aguilar PRN QID PRN TP MUSCLE PAIN; Start 02/27/18 at 14:45 Al Hydroxide/Mg Hydroxide (Mylanta Plus Xs) 15 ml PRN AFTMEALHC PRN PO DYSPEPSIA Last administered on 03/06/18at 01:54; Start 02/27/18 at 14:45 Magnesium Hydroxide (Milk Of Magnesia) 2,400 mg PRN QHS PRN PO CONSTIPATION; Start 02/27/18 at 14:45 Acetaminophen/ Hydrocodone Bitart (Lortab 5/325) 1 tab PRN Q6HRS PRN PO PAIN; Start 02/27/18 at 15:15; Status UNV Non-Formulary Medication (Amlodipine Besylate ) 1 tab DAILY PO ; Start 02/28/18 at 09:00; Stop 02/28/18 at 09:00; Status DC Docusate Sodium (Colace) 100 mg DAILY PO Last administered on 03/08/18at 08:08 ; Start 02/27/18 at 15:30 Non-Formulary Medication (Levothyroxine Sodium ) 1 tab DAILY06 PO ; Start at 06:00; Stop 02/28/18 at 06:00; Status DC Losartan Potassium (Cozaar) 50 mg DAILY PO ; Start 02/28/18 at 09:00; Stop 02/28 at 09:00; Status DC Non-Formulary Medication (Metoprolol Succinate (Metoprolol Succinate ( Xl ))) 1 tab DAILY PRN PO PER PROTOCOL; Start 02/27/18 at 15:15; Stop 02/27/18 at 16:10 ; Status DC Polyethylene Glycol (miraLAX) 17 gm DAILY PO ; Start 02/28/18 at 09:00; Stop at 09:00; Status DC Sucralfate (Carafate) 1 gm QID PO ; Start 02/27/18 at 21:00; Stop 02/27/18 at 21 :00; Status DC Mirtazapine (Remeron) 30 mg 1700 PO ; Start 02/27/18 at 17:00; Stop 02/27/18 at 17:00; Status DC Non-Formulary Medication (Alprazolam (Xanax)) 1 tab QID PO ; Start 02/27/18 at 17:00; Stop 02/27/18 at 17:00; Status DC Non-Formulary Medication (Clonazepam (Klonopin)) 1 tab QID PRN PO ANXIETY / AGITATION; Start 02/27/18 at 15:15; Stop 02/27/18 at 16:18; Status DC Non-Formulary Medication (Paroxetine Hcl ) 1 tab DAILY PO ; Start 02/28/18 at 09 :00; Stop 02/28/18 at 09:00; Status DC Losartan Potassium (Cozaar) 50 mg BID PO Last administered on 03/08/18at 08:07 ; Start 02/27/18 at 21:00 Mirtazapine (Remeron) 45 mg HS PO Last administered on 03/07/18at 21:12; Start 02/27/18 at 21:00 Metoprolol Tartrate (Lopressor) 25 mg DAILY PRN PO HYPERTENSION, SEE COMMENTS Last administered on 03/07/18at 07:47; Start 02/27/18 at 16:15 Senna/Docusate Sodium (Senna Plus) 1 tab DAILY PRN PO CONSTIPATION; Start 02/27 at 16:15; Stop 02/28/18 at 17:15; Status DC Clonazepam (KlonoPIN) 1 mg QID PO Last administered on 02/28/18at 14:00; Start 02/27/18 at 17:00; Stop 02/28/18 at 15:39; Status DC Amlodipine Besylate (Norvasc) 5 mg DAILY PRN PO BP > 120/80 Last administered on 03/07/18at 07:47; Start 02/28/18 at 09:00 Levothyroxine Sodium (Synthroid) 25 mcg DAILY06 PO Last administered on at 04:53; Start 02/28/18 at 06:00 Amlodipine Besylate (Norvasc) 10 mg DAILY PRN PO GIVE FOR BP > 133/89 Last administered on 03/07/18at 07:47; Start 02/28/18 at 09:00 Acetaminophen/ Hydrocodone Bitart (Lortab 5/325) 1 tab PRN Q6HRS PRN PO PAIN Last administered on 02/28/18at 15:36; Start 02/28/18 at 12:00 Clonazepam (KlonoPIN) 1 mg DAILY PO Last administered on 03/08/18at 08:14; Start 03/01/18 at 09:00 Clonazepam (KlonoPIN) 2 mg HS PO Last administered on 03/07/18at 21:12; Start 02/28/18 at 21:00 Gabapentin (Neurontin) 100 mg BID PO Last administered on 03/08/18at 08:14; Start 02/28/18 at 21:00 Senna/Docusate Sodium (Senna Plus) 1 tab DAILY PO Last administered on at 07:51; Start 02/28/18 at 17:15; Stop 03/05/18 at 10:09; Status DC Buspirone HCl (Buspar) 5 mg QID PO Last administered on 03/04/18at 07:56; Start 03/01/18 at 17:00; Stop 03/04/18 at 11:11; Status DC Divalproex Sodium (Depakote Sprinkles) 125 mg BID PO Last administered on 03/04 07:56; Start 03/01/18 at 21:00; Stop 03/04/18 at 11:12; Status DC Buspirone HCl (Buspar) 10 mg TID PO Last administered on 03/08/18at 13:45; Start 03/04/18 at 14:00 Divalproex Sodium (Depakote Sprinkles) 125 mg DAILY PO Last administered on at 08:10; Start 03/05/18 at 09:00 Divalproex Sodium (Depakote Sprinkles) 250 mg HS PO Last administered on at 21:13; Start 03/04/18 at 21:00 Senna/Docusate Sodium (Senna Plus) 1 tab PRN DAILY PO ; Start 03/06/18 at 09: 00 Vitamin D (Vitamin D3) 50,000 unit WEEKLY PO Last administered on 03/06/18at 07 :52; Start 03/06/18 at 09:00 Pantoprazole Sodium (Protonix) 40 mg DAILYAC PO Last administered on at 06:20; Start 03/06/18 at 07:30; Stop 03/08/18 at 09:18; Status DC Loperamide HCl (Imodium) 2 mg PRN Q15MIN PRN PO DIARRHEA Last administered on 03/06/18at 10:54; Start 03/06/18 at 10:30 Pantoprazole Sodium (Protonix) 40 mg DAILY06 PO ; Start 03/09/18 at 06:00 Active Scripts Active Reported Amlodipine Besylate 10 Mg Tablet 1 Tab PO DAILY PRN Metoprolol Tartrate 25 Mg Tablet 1 Tab PO DAILY PRN Senokot-S Tablet (Sennosides/Docusate Sodium) 1 Each Tablet 1 Tab PO DAILY PRN Remeron (Mirtazapine) 30 Mg Tablet 45 Mg PO HS Losartan Potassium 100 Mg Tablet 50 Mg PO BID Levothyroxine Sodium 25 Mcg Tablet 1 Tab PO DAILY06 Klonopin (Clonazepam) 1 Mg Tablet 1 Tab PO QID Amlodipine Besylate 5 Mg Tablet 5 Mg PO DAILY PRN I have reviewed the current psychotropics carefully including drug interactions. Risk benefit ratio favors no change other than as noted in my dictated progress note. Diagnosis: Problems: (1) Anxiety MICHELE BARKSDALE MD Mar 08, 2018 19:46
[2018-03-08] MEDS: MIRTAZAPINE 30 MG TABLET PO SCH (20:37)
[2018-03-08] MEDS: clonazePAM 2 MG TABLET PO SCH (20:38)
[2018-03-09] MEDS: MAG HYDROX/AL HYDROX/SIMETH 30 ML ORAL.SUSP PO PRN (02:45)
[2018-03-09] MEDS: LEVOTHYROXINE 25 MCG TABLET. PO SCH (04:57)
[2018-03-09] MEDS: PANTOPRAZOLE 40 MG TABLET. PO SCH (04:58)
[2018-03-09 06:13] VITALS: BP 149/89
[2018-03-09] MEDS: DOCUSATE SODIUM 100 MG CAPSULE PO SCH (09:31)
[2018-03-09] MEDS: LOSARTAN 50 MG TABLET. PO SCH ×2 (09:32→20:49)
[2018-03-09] MEDS: DIVALPROEX 125 MG CAP.SPRINK PO SCH ×2 (09:32→20:49)
[2018-03-09] MEDS: busPIRone 10 MG TABLET. PO SCH ×3 (09:32→20:48)
[2018-03-09] MEDS: GABAPENTIN 100 MG CAPSULE. PO SCH ×2 (09:35→20:48)
[2018-03-09] MEDS: clonazePAM 1 MG TABLET PO SCH ×2 (09:35→20:54)
[2018-03-09 16:07] VITALS: BP 129/77
[2018-03-09] MEDS ORDERED: traZODone 50 MG TABLET. PO PRN (16:30)
[2018-03-09] MEDS: IBUPROFEN 400 MG TABLET. PO SCH (17:18)
--- NOTE | 2018-03-09 19:03 | PDOC ---
Exam Note: Jimmy Note: Please also refer to the separate dictated note~for this date of service dictated separately.~Patient seen individually. Discussed the patient with Nursing staff reviewed the chart.~Reviewed interim history and current functioning. Reviewed vital signs,~Labs/ Radiology~and current medications noted below. Continue current treatment with the changes noted in the dictated addendum note Assessment: Vital Signs: Vital Signs Date Time Temp Pulse Resp B/P (MAP) Pulse Ox O2 Delivery O2 Flow Rate FiO2 03/09/18 16:07 98.7 69 18 129/77 (94) 97 03/07/18 05:36 Room Air I&O Intake and Output 03/09/18 07:00 Intake Total 960 ml Balance 960 ml Intake Oral 960 ml Current Medications: Meds: Current Medications Acetaminophen (Tylenol) 650 mg PRN Q6HRS PRN PO PAIN / TEMP Last administered on 02/28/18at 10:37; Start 02/27/18 at 14:45 Multi-Ingredient Ointment (Analgesic [place]) 1 aguilar PRN QID PRN TP MUSCLE PAIN; Start 02/27/18 at 14:45 Al Hydroxide/Mg Hydroxide (Mylanta Plus Xs) 15 ml PRN AFTMEALHC PRN PO DYSPEPSIA Last administered on 03/09/18at 02:45; Start 02/27/18 at 14:45 Magnesium Hydroxide (Milk Of Magnesia) 2,400 mg PRN QHS PRN PO CONSTIPATION; Start 02/27/18 at 14:45 Acetaminophen/ Hydrocodone Bitart (Lortab 5/325) 1 tab PRN Q6HRS PRN PO PAIN; Start 02/27/18 at 15:15; Status UNV Non-Formulary Medication (Amlodipine Besylate ) 1 tab DAILY PO ; Start 02/28/18 at 09:00; Stop 02/28/18 at 09:00; Status DC Docusate Sodium (Colace) 100 mg DAILY PO Last administered on 03/09/18at 09:31 ; Start 02/27/18 at 15:30 Non-Formulary Medication (Levothyroxine Sodium ) 1 tab DAILY06 PO ; Start at 06:00; Stop 02/28/18 at 06:00; Status DC Losartan Potassium (Cozaar) 50 mg DAILY PO ; Start 02/28/18 at 09:00; Stop 02/28 at 09:00; Status DC Non-Formulary Medication (Metoprolol Succinate (Metoprolol Succinate ( Xl ))) 1 tab DAILY PRN PO PER PROTOCOL; Start 02/27/18 at 15:15; Stop 02/27/18 at 16:10 ; Status DC Polyethylene Glycol (miraLAX) 17 gm DAILY PO ; Start 02/28/18 at 09:00; Stop at 09:00; Status DC Sucralfate (Carafate) 1 gm QID PO ; Start 02/27/18 at 21:00; Stop 02/27/18 at 21 :00; Status DC Mirtazapine (Remeron) 30 mg 1700 PO ; Start 02/27/18 at 17:00; Stop 02/27/18 at 17:00; Status DC Non-Formulary Medication (Alprazolam (Xanax)) 1 tab QID PO ; Start 02/27/18 at 17:00; Stop 02/27/18 at 17:00; Status DC Non-Formulary Medication (Clonazepam (Klonopin)) 1 tab QID PRN PO ANXIETY / AGITATION; Start 02/27/18 at 15:15; Stop 02/27/18 at 16:18; Status DC Non-Formulary Medication (Paroxetine Hcl ) 1 tab DAILY PO ; Start 02/28/18 at 09 :00; Stop 02/28/18 at 09:00; Status DC Losartan Potassium (Cozaar) 50 mg BID PO Last administered on 03/09/18at 09:32 ; Start 02/27/18 at 21:00 Mirtazapine (Remeron) 45 mg HS PO Last administered on 03/08/18at 20:37; Start 02/27/18 at 21:00 Metoprolol Tartrate (Lopressor) 25 mg DAILY PRN PO HYPERTENSION, SEE COMMENTS Last administered on 03/07/18at 07:47; Start 02/27/18 at 16:15 Senna/Docusate Sodium (Senna Plus) 1 tab DAILY PRN PO CONSTIPATION; Start 02/27 at 16:15; Stop 02/28/18 at 17:15; Status DC Clonazepam (KlonoPIN) 1 mg QID PO Last administered on 02/28/18at 14:00; Start 02/27/18 at 17:00; Stop 02/28/18 at 15:39; Status DC Amlodipine Besylate (Norvasc) 5 mg DAILY PRN PO BP > 120/80 Last administered on 03/07/18at 07:47; Start 02/28/18 at 09:00 Levothyroxine Sodium (Synthroid) 25 mcg DAILY06 PO Last administered on at 04:57; Start 02/28/18 at 06:00 Amlodipine Besylate (Norvasc) 10 mg DAILY PRN PO GIVE FOR BP > 133/89 Last administered on 03/07/18at 07:47; Start 02/28/18 at 09:00 Acetaminophen/ Hydrocodone Bitart (Lortab 5/325) 1 tab PRN Q6HRS PRN PO PAIN Last administered on 02/28/18at 15:36; Start 02/28/18 at 12:00 Clonazepam (KlonoPIN) 1 mg DAILY PO Last administered on 03/09/18 09:35; Start 03/01/18 at 09:00 Clonazepam (KlonoPIN) 2 mg HS PO Last administered on 03/08/18at 20:38; Start 02/28/18 at 21:00; Stop 03/09/18 at 16:32; Status DC Gabapentin (Neurontin) 100 mg BID PO Last administered on 03/09/18at 09:35; Start 02/28/18 at 21:00 Senna/Docusate Sodium (Senna Plus) 1 tab DAILY PO Last administered on at 07:51; Start 02/28/18 at 17:15; Stop 03/05/18 at 10:09; Status DC Buspirone HCl (Buspar) 5 mg QID PO Last administered on 03/04/18at 07:56; Start 03/01/18 at 17:00; Stop 03/04/18 at 11:11; Status DC Divalproex Sodium (Depakote Sprinkles) 125 mg BID PO Last administered on 03/04at 07:56; Start 03/01/18 at 21:00; Stop 03/04/18 at 11:12; Status DC Buspirone HCl (Buspar) 10 mg TID PO Last administered on 03/09/18at 14:13; Start 03/04/18 at 14:00 Divalproex Sodium (Depakote Sprinkles) 125 mg DAILY PO Last administered on at 09:32; Start 03/05/18 at 09:00 Divalproex Sodium (Depakote Sprinkles) 250 mg HS PO Last administered on at 20:38; Start 03/04/18 at 21:00 Senna/Docusate Sodium (Senna Plus) 1 tab PRN DAILY PO ; Start 03/06/18 at 09: 00 Vitamin D (Vitamin D3) 50,000 unit WEEKLY PO Last administered on 03/06/18at 07 :52; Start 03/06/18 at 09:00 Pantoprazole Sodium (Protonix) 40 mg DAILYAC PO Last administered on at 06:20; Start 03/06/18 at 07:30; Stop 03/08/18 at 09:18; Status DC Loperamide HCl (Imodium) 2 mg PRN Q15MIN PRN PO DIARRHEA Last administered on 03/06/18at 10:54; Start 03/06/18 at 10:30 Pantoprazole Sodium (Protonix) 40 mg DAILY06 PO Last administered on at 04:58; Start 03/09/18 at 06:00 Ibuprofen (Motrin) 400 mg TIDWMEALS PO Last administered on 03/09/18at 17:18; Start 03/09/18 at 17:00; Stop 03/15/18 at 16:59 Clonazepam (KlonoPIN) 1.5 mg QHS PO ; Start 03/09/18 at 21:00 Trazodone HCl (Desyrel) 50 mg QHS PO ; Start 03/09/18 at 21:00 Trazodone HCl (Desyrel) 50 mg PRN QHS PRN PO insomnia; Start 03/09/18 at 16:30 Active Scripts Active Reported Amlodipine Besylate 10 Mg Tablet 1 Tab PO DAILY PRN Metoprolol Tartrate 25 Mg Tablet 1 Tab PO DAILY PRN Senokot-S Tablet (Sennosides/Docusate Sodium) 1 Each Tablet 1 Tab PO DAILY PRN Remeron (Mirtazapine) 30 Mg Tablet 45 Mg PO HS Losartan Potassium 100 Mg Tablet 50 Mg PO BID Levothyroxine Sodium 25 Mcg Tablet 1 Tab PO DAILY06 Klonopin (Clonazepam) 1 Mg Tablet 1 Tab PO QID Amlodipine Besylate 5 Mg Tablet 5 Mg PO DAILY PRN I have reviewed the current psychotropics carefully including drug interactions. Risk benefit ratio favors no change other than as noted in my dictated progress note. Diagnosis: Problems: (1) Mood swings (2) Anxiety MICHELE BARKSDALE MD Mar 09, 2018 19:03
[2018-03-09 19:55] VITALS: BP 124/79
[2018-03-09] MEDS: MIRTAZAPINE 30 MG TABLET PO SCH (20:49)
[2018-03-09] MEDS: traZODone 50 MG TABLET. PO SCH (20:52)
--- NOTE | 2018-03-09 21:04 | PN ---
DATE: 03/08/2018 PSYCHIATRIC PROGRESS NOTE This late entry 03/08/2018 covers elements not covered in my initial note. SUBJECTIVE: I met with the patient in the evening. Discussed with nursing staff, reviewed the chart and also discussed with Dr. Parson who had covered for me over the past 1 week or so. The patient remains quite depressed, withdrawn, isolative, tearful previous night regarding losing her , which happened several years ago. Per nursing report, she is bowel obsessed, oriented x 4. Slept 7-1/4 hours previous night. As I met with her, she gave me a fairly lucid history. Her worked for the [employer] for 36 years. She essentially spent time raising a family in [place]. She currently has 2 sons, living at home with her. She gets Meals on Wheels and 1 son has multiple sclerosis, is on disability and the other son is job hunting and they eat outside the home by themselves. She admits to being anxious, somewhat obsessive. REVIEW OF SYSTEMS: Ambulation impaired with walker. No CV, , pulmonary, eye system symptoms on review. She has vague somatic symptoms with GI symptoms. MENTAL STATUS EXAM: Alert and oriented x 4. Speech coherent, abstraction fair, computation impaired, language function intact. Mood and affect remain somewhat anxious, obsessive, dysphoric. LABORATORY DATA: Reviewed. IMPRESSION: Major depressive disorder, recurrent; anxiety disorder, unspecified; impulse control disorder, unspecified. PLAN: Continue psychotropics from initial note. Make further changes as clinically indicated. She is on Klonopin 1 mg a.m., 2 mg at bedtime, we may need to reduce this. Maintain Neurontin, Remeron, BuSpar, and Depakote at current dosage for now. MAN Loy BARKSDALE MD DR: REAL/rico JOB#: [id number] / [id number]
[2018-03-10] MEDS: LEVOTHYROXINE 25 MCG TABLET. PO SCH (05:42)
[2018-03-10] MEDS: PANTOPRAZOLE 40 MG TABLET. PO SCH (05:42)
[2018-03-10 05:47] VITALS: BP 127/79
[2018-03-10] MEDS: busPIRone 10 MG TABLET. PO SCH ×3 (08:00→19:58)
[2018-03-10] MEDS: LOSARTAN 50 MG TABLET. PO SCH ×2 (08:00→19:59)
[2018-03-10] MEDS: DOCUSATE SODIUM 100 MG CAPSULE PO SCH (08:00)
[2018-03-10] MEDS: IBUPROFEN 400 MG TABLET. PO SCH ×3 (08:01→17:00)
[2018-03-10] MEDS: DIVALPROEX 125 MG CAP.SPRINK PO SCH ×2 (08:01→19:58)
[2018-03-10] MEDS: GABAPENTIN 100 MG CAPSULE. PO SCH ×2 (08:02→19:57)
[2018-03-10] MEDS: clonazePAM 1 MG TABLET PO SCH ×2 (08:02→19:57)
[2018-03-10 15:56] VITALS: BP 127/77
--- NOTE | 2018-03-10 19:35 | PDOC ---
Exam Note: Jimmy Note: Please also refer to the separate dictated note~for this date of service dictated separately.~Patient seen individually. Discussed the patient with Nursing staff reviewed the chart.~Reviewed interim history and current functioning. Reviewed vital signs,~Labs/ Radiology~and current medications noted below. Continue current treatment with the changes noted in the dictated addendum note Assessment: Vital Signs: Vital Signs Date Time Temp Pulse Resp B/P (MAP) Pulse Ox O2 Delivery O2 Flow Rate FiO2 03/10/18 15:56 98.6 69 18 127/77 (94) 99 03/07/18 05:36 Room Air I&O Intake and Output 03/10/18 07:00 Intake Total 1060 ml Balance 1060 ml Intake Oral 1060 ml # Bowel Movements 1 Current Medications: Meds: Current Medications Acetaminophen (Tylenol) 650 mg PRN Q6HRS PRN PO PAIN / TEMP Last administered on 02/28/18at 10:37; Start 02/27/18 at 14:45 Multi-Ingredient Ointment (Analgesic [place]) 1 aguilar PRN QID PRN TP MUSCLE PAIN; Start 02/27/18 at 14:45 Al Hydroxide/Mg Hydroxide (Mylanta Plus Xs) 15 ml PRN AFTMEALHC PRN PO DYSPEPSIA Last administered on 03/09/18at 02:45; Start 02/27/18 at 14:45 Magnesium Hydroxide (Milk Of Magnesia) 2,400 mg PRN QHS PRN PO CONSTIPATION; Start 02/27/18 at 14:45 Acetaminophen/ Hydrocodone Bitart (Lortab 5/325) 1 tab PRN Q6HRS PRN PO PAIN; Start 02/27/18 at 15:15; Status UNV Non-Formulary Medication (Amlodipine Besylate ) 1 tab DAILY PO ; Start 02/28/18 at 09:00; Stop 02/28/18 at 09:00; Status DC Docusate Sodium (Colace) 100 mg DAILY PO Last administered on 03/10/18at 08:00 ; Start 02/27/18 at 15:30 Non-Formulary Medication (Levothyroxine Sodium ) 1 tab DAILY06 PO ; Start at 06:00; Stop 02/28/18 at 06:00; Status DC Losartan Potassium (Cozaar) 50 mg DAILY PO ; Start 02/28/18 at 09:00; Stop 02/28 at 09:00; Status DC Non-Formulary Medication (Metoprolol Succinate (Metoprolol Succinate ( Xl ))) 1 tab DAILY PRN PO PER PROTOCOL; Start 02/27/18 at 15:15; Stop 02/27/18 at 16:10 ; Status DC Polyethylene Glycol (miraLAX) 17 gm DAILY PO ; Start 02/28/18 at 09:00; Stop at 09:00; Status DC Sucralfate (Carafate) 1 gm QID PO ; Start 02/27/18 at 21:00; Stop 02/27/18 at 21 :00; Status DC Mirtazapine (Remeron) 30 mg 1700 PO ; Start 02/27/18 at 17:00; Stop 02/27/18 at 17:00; Status DC Non-Formulary Medication (Alprazolam (Xanax)) 1 tab QID PO ; Start 02/27/18 at 17:00; Stop 02/27/18 at 17:00; Status DC Non-Formulary Medication (Clonazepam (Klonopin)) 1 tab QID PRN PO ANXIETY / AGITATION; Start 02/27/18 at 15:15; Stop 02/27/18 at 16:18; Status DC Non-Formulary Medication (Paroxetine Hcl ) 1 tab DAILY PO ; Start 02/28/18 at 09 :00; Stop 02/28/18 at 09:00; Status DC Losartan Potassium (Cozaar) 50 mg BID PO Last administered on 03/10/18at 08:00 ; Start 02/27/18 at 21:00 Mirtazapine (Remeron) 45 mg HS PO Last administered on 03/09/18at 20:49; Start 02/27/18 at 21:00 Metoprolol Tartrate (Lopressor) 25 mg DAILY PRN PO HYPERTENSION, SEE COMMENTS Last administered on 03/07/18at 07:47; Start 02/27/18 at 16:15 Senna/Docusate Sodium (Senna Plus) 1 tab DAILY PRN PO CONSTIPATION; Start 02/27 at 16:15; Stop 02/28/18 at 17:15; Status DC Clonazepam (KlonoPIN) 1 mg QID PO Last administered on 02/28/18at 14:00; Start 02/27/18 at 17:00; Stop 02/28/18 at 15:39; Status DC Amlodipine Besylate (Norvasc) 5 mg DAILY PRN PO BP > 120/80 Last administered on 03/07/18at 07:47; Start 02/28/18 at 09:00 Levothyroxine Sodium (Synthroid) 25 mcg DAILY06 PO Last administered on at 05:42; Start 02/28/18 at 06:00 Amlodipine Besylate (Norvasc) 10 mg DAILY PRN PO GIVE FOR BP > 133/89 Last administered on 03/07/18at 07:47; Start 02/28/18 at 09:00 Acetaminophen/ Hydrocodone Bitart (Lortab 5/325) 1 tab PRN Q6HRS PRN PO PAIN Last administered on 02/28/18at 15:36; Start 02/28/18 at 12:00 Clonazepam (KlonoPIN) 1 mg DAILY PO Last administered on 03/10/18at 08:02; Start 03/01/18 at 09:00; Stop 03/10/18 at 18:19; Status DC Clonazepam (KlonoPIN) 2 mg HS PO Last administered on 03/08/18at 20:38; Start 02/28/18 at 21:00; Stop 03/09/18 at 16:32; Status DC Gabapentin (Neurontin) 100 mg BID PO Last administered on 03/10/18at 08:02; Start 02/28/18 at 21:00 Senna/Docusate Sodium (Senna Plus) 1 tab DAILY PO Last administered on at 07:51; Start 02/28/18 at 17:15; Stop 03/05/18 at 10:09; Status DC Buspirone HCl (Buspar) 5 mg QID PO Last administered on 03/04/18at 07:56; Start 03/01/18 at 17:00; Stop 03/04/18 at 11:11; Status DC Divalproex Sodium (Depakote Sprinkles) 125 mg BID PO Last administered on 03/04at 07:56; Start 03/01/18 at 21:00; Stop 03/04/18 at 11:12; Status DC Buspirone HCl (Buspar) 10 mg TID PO Last administered on 03/10/18at 15:03; Start 03/04/18 at 14:00 Divalproex Sodium (Depakote Sprinkles) 125 mg DAILY PO Last administered on at 08:01; Start 03/05/18 at 09:00 Divalproex Sodium (Depakote Sprinkles) 250 mg HS PO Last administered on at 20:49; Start 03/04/18 at 21:00 Senna/Docusate Sodium (Senna Plus) 1 tab PRN DAILY PO ; Start 03/06/18 at 09: 00 Vitamin D (Vitamin D3) 50,000 unit WEEKLY PO Last administered on 03/06/18at 07 :52; Start 03/06/18 at 09:00 Pantoprazole Sodium (Protonix) 40 mg DAILYAC PO Last administered on at 06:20; Start 03/06/18 at 07:30; Stop 03/08/18 at 09:18; Status DC Loperamide HCl (Imodium) 2 mg PRN Q15MIN PRN PO DIARRHEA Last administered on 03/06/18at 10:54; Start 03/06/18 at 10:30 Pantoprazole Sodium (Protonix) 40 mg DAILY06 PO Last administered on at 05:42; Start 03/09/18 at 06:00 Ibuprofen (Motrin) 400 mg TIDWMEALS PO Last administered on 03/10/18at 11:53; Start 03/09/18 at 17:00; Stop 03/10/18 at 18:17; Status DC Clonazepam (KlonoPIN) 1.5 mg QHS PO Last administered on 03/09/18at 20:54; Start 03/09/18 at 21:00 Trazodone HCl (Desyrel) 50 mg QHS PO Last administered on 03/09/18at 20:52; Start 03/09/18 at 21:00 Trazodone HCl (Desyrel) 50 mg PRN QHS PRN PO insomnia; Start 03/09/18 at 16:30 Clonazepam (KlonoPIN) 0.5 mg DAILY PO ; Start 03/11/18 at 09:00 Active Scripts Active Reported Amlodipine Besylate 10 Mg Tablet 1 Tab PO DAILY PRN Metoprolol Tartrate 25 Mg Tablet 1 Tab PO DAILY PRN Senokot-S Tablet (Sennosides/Docusate Sodium) 1 Each Tablet 1 Tab PO DAILY PRN Remeron (Mirtazapine) 30 Mg Tablet 45 Mg PO HS Losartan Potassium 100 Mg Tablet 50 Mg PO BID Levothyroxine Sodium 25 Mcg Tablet 1 Tab PO DAILY06 Klonopin (Clonazepam) 1 Mg Tablet 1 Tab PO QID Amlodipine Besylate 5 Mg Tablet 5 Mg PO DAILY PRN I have reviewed the current psychotropics carefully including drug interactions. Risk benefit ratio favors no change other than as noted in my dictated progress note. Diagnosis: Problems: (1) Depression (2) Substance abuse (3) Anxiety (4) Mood swings MICHELE BARKSDALE MD Mar 10, 2018 19:35
[2018-03-10] MEDS: MIRTAZAPINE 30 MG TABLET PO SCH (19:57)
[2018-03-10] MEDS: traZODone 50 MG TABLET. PO SCH (19:57)
--- NOTE | 2018-03-10 20:55 | PN ---
DATE: 03/09/2018 PSYCHIATRIC PROGRESS NOTE This late entry 03/09/2018 covers elements not covered in my initial note. SUBJECTIVE: I met with the patient in the evening. The patient slept 8 hours previous evening. She has been irritable regarding physical therapy staff from [facility] not having come to see her on 03/09/2018. I addressed this with her. She remains somewhat anxious, obsessive as well. REVIEW OF SYSTEMS: Ambulation impaired. No CV, , pulmonary, eye, ENT system symptoms on review. She has some vague GI symptoms. MENTAL STATUS EXAM: Reasonably oriented. Speech is coherent, at times a little pressured. Abstraction fair, computation impaired, language function intact, attention span short. Mood and affect still remains anxious, labile, but she is reasonably oriented. LABORATORY DATA: Reviewed. IMPRESSION: Major depressive disorder in partial remission; anxiety disorder, unspecified. PLAN: The patient is on a total of 3 mg Klonopin and for her age of 82, this is somewhat excessive. It would cause a significant fall risk and I addressed this at length with the patient and we will reduce the at bedtime Klonopin down to 1.5 mg and to the extent that this affects her sleep pattern, we will add trazodone 50 mg at bedtime, may repeat x 1 for insomnia. Maintain rest of the psychotropics unchanged for now including Depakote, Neurontin, Remeron, and BuSpar. Adjust further as clinically indicated. MAN Loy BARKSDALE MD DR: REAL/rico JOB#: [id number] / [id number]
[2018-03-10] MEDS: MAG HYDROX/AL HYDROX/SIMETH 30 ML ORAL.SUSP PO PRN (23:38)
[2018-03-11] MEDS: PANTOPRAZOLE 40 MG TABLET. PO SCH (05:04)
[2018-03-11] MEDS: LEVOTHYROXINE 25 MCG TABLET. PO SCH (05:04)
[2018-03-11 05:35] VITALS: BP 115/71
[2018-03-11] MEDS: DOCUSATE SODIUM 100 MG CAPSULE PO SCH ×2 (07:55→08:30)
[2018-03-11] MEDS: busPIRone 10 MG TABLET. PO SCH ×3 (07:56→19:31)
[2018-03-11] MEDS: GABAPENTIN 100 MG CAPSULE. PO SCH (07:56)
[2018-03-11] MEDS: DIVALPROEX 125 MG CAP.SPRINK PO SCH ×2 (07:56→19:29)
[2018-03-11] MEDS: LOSARTAN 50 MG TABLET. PO SCH ×2 (07:56→19:31)
[2018-03-11] MEDS: clonazePAM 0.5 MG TABLET PO SCH (07:58)
[2018-03-11] MEDS ORDERED: NYSTATIN TOPICAL POWDER 15GM BOTTLE. TP PRN (10:45)
[2018-03-11] MEDS: NYSTATIN 100,000 UNIT/GM TOPICAL CREAM 15GM TUBE. TP SCH ×2 (11:16→19:31)
[2018-03-11] MEDS: HYDROcodone/APAP 5/325MG 1 TAB TABLET PO PRN (15:21)
[2018-03-11 15:29] VITALS: BP 114/80
[2018-03-11] MEDS ORDERED: ACET325T9 PO (15:48)
[2018-03-11] MEDS ORDERED: CHOL500021 PO (15:50)
[2018-03-11] MEDS ORDERED: DIVA125C2 PO ×2 (15:51→15:52)
[2018-03-11] MEDS ORDERED: DOCU-109 PO (15:53)
[2018-03-11] MEDS ORDERED: GABA-585 PO (15:54)
[2018-03-11] MEDS ORDERED: HYDR-2759 PO (15:57)
[2018-03-11] MEDS ORDERED: LOPE2CAP PO (15:58)
[2018-03-11] MEDS ORDERED: MAG30ORA PO (16:00)
[2018-03-11] MEDS ORDERED: MAGN2400 PO (16:02)
[2018-03-11] MEDS ORDERED: CLON0.5T11 PO (16:14)
[2018-03-11] MEDS ORDERED: CLON1TAB11 PO (16:15)
[2018-03-11] MEDS ORDERED: BUSP10TA PO (16:16)
[2018-03-11] MEDS ORDERED: TRAZ-85 PO ×2 (16:17)
[2018-03-11] MEDS: MIRTAZAPINE 30 MG TABLET PO SCH (19:30)
[2018-03-11] MEDS: traZODone 50 MG TABLET. PO SCH (19:31)
[2018-03-11] MEDS: clonazePAM 1 MG TABLET PO SCH (19:39)
[2018-03-11] MEDS ORDERED: DOCUSATE SODIUM 100 MG CAPSULE PO ONE (21:00)
--- NOTE | 2018-03-11 22:50 | PDOC ---
Exam Note: Jimmy Note: Please also refer to the separate dictated note~for this date of service dictated separately.~Patient seen individually. Discussed the patient with Nursing staff reviewed the chart.~Reviewed interim history and current functioning. Reviewed vital signs,~Labs/ Radiology~and current medications noted below. Continue current treatment with the changes noted in the dictated addendum note Assessment: Vital Signs: Vital Signs Date Time Temp Pulse Resp B/P (MAP) Pulse Ox O2 Delivery O2 Flow Rate FiO2 03/11/18 19:31 63 114/80 03/11/18 19:29 18 97 Room Air 03/11/18 15:29 97.8 I&O Intake and Output 03/11/18 07:01 Intake Total 1080 ml Balance 1080 ml Intake Oral 1080 ml # Voids 1 # Bowel Movements 2 Current Medications: Meds: Current Medications Acetaminophen (Tylenol) 650 mg PRN Q6HRS PRN PO PAIN / TEMP Last administered on 02/28/18at 10:37; Start 02/27/18 at 14:45 Multi-Ingredient Ointment (Analgesic [place]) 1 aguilar PRN QID PRN TP MUSCLE PAIN; Start 02/27/18 at 14:45 Al Hydroxide/Mg Hydroxide (Mylanta Plus Xs) 15 ml PRN AFTMEALHC PRN PO DYSPEPSIA Last administered on 03/10/18at 23:38; Start 02/27/18 at 14:45 Magnesium Hydroxide (Milk Of Magnesia) 2,400 mg PRN QHS PRN PO CONSTIPATION; Start 02/27/18 at 14:45 Acetaminophen/ Hydrocodone Bitart (Lortab 5/325) 1 tab PRN Q6HRS PRN PO PAIN; Start 02/27/18 at 15:15; Status UNV Non-Formulary Medication (Amlodipine Besylate ) 1 tab DAILY PO ; Start 02/28/18 at 09:00; Stop 02/28/18 at 09:00; Status DC Docusate Sodium (Colace) 100 mg DAILY PO Last administered on 03/10/18at 08:00 ; Start 02/27/18 at 15:30 Non-Formulary Medication (Levothyroxine Sodium ) 1 tab DAILY06 PO ; Start at 06:00; Stop 02/28/18 at 06:00; Status DC Losartan Potassium (Cozaar) 50 mg DAILY PO ; Start 02/28/18 at 09:00; Stop 02/28 at 09:00; Status DC Non-Formulary Medication (Metoprolol Succinate (Metoprolol Succinate ( Xl ))) 1 tab DAILY PRN PO PER PROTOCOL; Start 02/27/18 at 15:15; Stop 02/27/18 at 16:10 ; Status DC Polyethylene Glycol (miraLAX) 17 gm DAILY PO ; Start 02/28/18 at 09:00; Stop at 09:00; Status DC Sucralfate (Carafate) 1 gm QID PO ; Start 02/27/18 at 21:00; Stop 02/27/18 at 21 :00; Status DC Mirtazapine (Remeron) 30 mg 1700 PO ; Start 02/27/18 at 17:00; Stop 02/27/18 at 17:00; Status DC Non-Formulary Medication (Alprazolam (Xanax)) 1 tab QID PO ; Start 02/27/18 at 17:00; Stop 02/27/18 at 17:00; Status DC Non-Formulary Medication (Clonazepam (Klonopin)) 1 tab QID PRN PO ANXIETY / AGITATION; Start 02/27/18 at 15:15; Stop 02/27/18 at 16:18; Status DC Non-Formulary Medication (Paroxetine Hcl ) 1 tab DAILY PO ; Start 02/28/18 at 09 :00; Stop 02/28/18 at 09:00; Status DC Losartan Potassium (Cozaar) 50 mg BID PO Last administered on 03/11/18at 19:31 ; Start 02/27/18 at 21:00 Mirtazapine (Remeron) 45 mg HS PO Last administered on 03/11/18at 19:30; Start 02/27/18 at 21:00 Metoprolol Tartrate (Lopressor) 25 mg DAILY PRN PO HYPERTENSION, SEE COMMENTS Last administered on 03/07/18at 07:47; Start 02/27/18 at 16:15 Senna/Docusate Sodium (Senna Plus) 1 tab DAILY PRN PO CONSTIPATION; Start 02/27 at 16:15; Stop 02/28/18 at 17:15; Status DC Clonazepam (KlonoPIN) 1 mg QID PO Last administered on 02/28/18at 14:00; Start 02/27/18 at 17:00; Stop 02/28/18 at 15:39; Status DC Amlodipine Besylate (Norvasc) 5 mg DAILY PRN PO BP > 120/80 Last administered on 03/07/18at 07:47; Start 02/28/18 at 09:00 Levothyroxine Sodium (Synthroid) 25 mcg DAILY06 PO Last administered on at 05:04; Start 02/28/18 at 06:00 Amlodipine Besylate (Norvasc) 10 mg DAILY PRN PO GIVE FOR BP > 133/89 Last administered on 03/07/18at 07:47; Start 02/28/18 at 09:00 Acetaminophen/ Hydrocodone Bitart (Lortab 5/325) 1 tab PRN Q6HRS PRN PO PAIN Last administered on 03/11/18at 15:21; Start 02/28/18 at 12:00 Clonazepam (KlonoPIN) 1 mg DAILY PO Last administered on 03/10/18at 08:02; Start 03/01/18 at 09:00; Stop 03/10/18 at 18:19; Status DC Clonazepam (KlonoPIN) 2 mg HS PO Last administered on 03/08/18at 20:38; Start 02/28/18 at 21:00; Stop 03/09/18 at 16:32; Status DC Gabapentin (Neurontin) 100 mg BID PO Last administered on 03/11/18at 07:56; Start 02/28/18 at 21:00; Stop 03/11/18 at 10:32; Status DC Senna/Docusate Sodium (Senna Plus) 1 tab DAILY PO Last administered on at 07:51; Start 02/28/18 at 17:15; Stop 03/05/18 at 10:09; Status DC Buspirone HCl (Buspar) 5 mg QID PO Last administered on 03/04/18at 07:56; Start 03/01/18 at 17:00; Stop 03/04/18 at 11:11; Status DC Divalproex Sodium (Depakote Sprinkles) 125 mg BID PO Last administered on 03/04at 07:56; Start 03/01/18 at 21:00; Stop 03/04/18 at 11:12; Status DC Buspirone HCl (Buspar) 10 mg TID PO Last administered on 03/11/18at 19:31; Start 03/04/18 at 14:00 Divalproex Sodium (Depakote Sprinkles) 125 mg DAILY PO Last administered on at 07:56; Start 03/05/18 at 09:00 Divalproex Sodium (Depakote Sprinkles) 250 mg HS PO Last administered on at 19:29; Start 03/04/18 at 21:00 Senna/Docusate Sodium (Senna Plus) 1 tab PRN DAILY PO ; Start 03/06/18 at 09: 00 Vitamin D (Vitamin D3) 50,000 unit WEEKLY PO Last administered on 03/06/18at 07 :52; Start 03/06/18 at 09:00 Pantoprazole Sodium (Protonix) 40 mg DAILYAC PO Last administered on at 06:20; Start 03/06/18 at 07:30; Stop 03/08/18 at 09:18; Status DC Loperamide HCl (Imodium) 2 mg PRN Q15MIN PRN PO DIARRHEA Last administered on 03/06/18at 10:54; Start 03/06/18 at 10:30 Pantoprazole Sodium (Protonix) 40 mg DAILY06 PO Last administered on at 05:04; Start 03/09/18 at 06:00 Ibuprofen (Motrin) 400 mg TIDWMEALS PO Last administered on 03/10/18at 11:53; Start 03/09/18 at 17:00; Stop 03/10/18 at 18:17; Status DC Clonazepam (KlonoPIN) 1.5 mg QHS PO Last administered on 03/11/18at 19:39; Start 03/09/18 at 21:00 Trazodone HCl (Desyrel) 50 mg QHS PO Last administered on 03/11/18at 19:31; Start 03/09/18 at 21:00 Trazodone HCl (Desyrel) 50 mg PRN QHS PRN PO insomnia; Start 03/09/18 at 16:30 Clonazepam (KlonoPIN) 0.5 mg DAILY PO Last administered on 03/11/18at 07:58; Start 03/11/18 at 09:00 Gabapentin (Neurontin) 100 mg DAILY PO ; Start 03/12/18 at 09:00; Stop at 08:59 Nystatin (Nystop) 1 aguilar PRN BID PRN TP ITCHING; Start 03/11/18 at 10:45 Nystatin (Mycostatin) 1 aguilar BID TP Last administered on 03/11/18at 19:31; Start 03/11/18 at 11:15; Stop 03/17/18 at 11:00 Docusate Sodium (Colace) 100 mg 1X ONCE PO Last administered on 03/11/18at 19: 29; Start 03/11/18 at 21:00; Stop 03/11/18 at 21:01; Status DC Active Scripts Active Reported Trazodone Hcl 50 Mg Tablet 50 Mg PO PRN QHS PRN Trazodone Hcl 50 Mg Tablet 50 Mg PO QHS Buspirone Hcl 10 Mg Tablet 10 Mg PO TID Clonazepam 1 Mg Tablet 1.5 Mg PO QHS Clonazepam 0.5 Mg Tablet 0.5 Mg PO DAILY Milk Of Magnesia (Magnesium Hydroxide) 2,400 Mg/10 Ml Oral.susp 2,400 Mg PO PRN QHS PRN Mag-Al Plus Suspension (Mag Hydrox/Al Hydrox/Simeth) 30 Ml Oral.susp 30 Ml PO PRN AFTMEALHC PRN Loperamide (Loperamide Hcl) 2 Mg Capsule 2 Mg PO PRN Q15MIN PRN Hydrocodone-Acetamin 5-325 mg (Hydrocodone/Acetaminophen) 1 Each Tablet 1 Each PO PRN Q6HRS PRN Gabapentin (Gabapentin) 100 Mg Capsule 100 Mg PO DAILY PRN Colace (Docusate Sodium) 100 Mg Capsule 100 Mg PO DAILY Depakote Sprinkle (Divalproex Sodium) 125 Mg Cap.sprink 250 Mg PO QHS PRN Depakote Sprinkle (Divalproex Sodium) 125 Mg Cap.sprink 125 Mg PO DAILY PRN D3-50 (Cholecalciferol (Vitamin D3)) 50,000 Unit Capsule 50,000 Unit PO QSA PRN Tylenol (Acetaminophen) 325 Mg Tablet 650 Mg PO PRN Q6HRS PRN Amlodipine Besylate 10 Mg Tablet 1 Tab PO DAILY PRN Metoprolol Tartrate 25 Mg Tablet 1 Tab PO DAILY PRN Senokot-S Tablet (Sennosides/Docusate Sodium) 1 Each Tablet 1 Tab PO DAILY PRN Remeron (Mirtazapine) 30 Mg Tablet 45 Mg PO HS Losartan Potassium 100 Mg Tablet 50 Mg PO BID Levothyroxine Sodium 25 Mcg Tablet 1 Tab PO DAILY06 Klonopin (Clonazepam) 1 Mg Tablet 1 Tab PO QID Amlodipine Besylate 5 Mg Tablet 5 Mg PO DAILY PRN I have reviewed the current psychotropics carefully including drug interactions. Risk benefit ratio favors no change other than as noted in my dictated progress note. Diagnosis: Problems: (1) Anxiety (2) Mood swings (3) Substance abuse (4) Depression MICHELE BARKSDALE MD Mar 11, 2018 22:50
[2018-03-12] MEDS: LEVOTHYROXINE 25 MCG TABLET. PO SCH (05:25)
[2018-03-12] MEDS: PANTOPRAZOLE 40 MG TABLET. PO SCH (05:25)
[2018-03-12 06:22] VITALS: BP 123/82
[2018-03-12] MEDS ORDERED: METH29OI TP (08:18)
[2018-03-12] MEDS ORDERED: NYST60PO TP (08:20)
[2018-03-12] MEDS ORDERED: NYST1000 TP (08:22)
[2018-03-12] MEDS ORDERED: PANT40TA3 PO (08:23)
[2018-03-12] MEDS: busPIRone 10 MG TABLET. PO SCH (08:30)
[2018-03-12] MEDS: DOCUSATE SODIUM 100 MG CAPSULE PO SCH (08:30)
[2018-03-12] MEDS: METOPROLOL TART IMMED RELEASE 25 MG TABLET PO PRN (08:30)
[2018-03-12] MEDS: LOSARTAN 50 MG TABLET. PO SCH (08:30)
[2018-03-12 08:31] VITALS: BP 123/82
[2018-03-12] MEDS: amLODIPine BESYLATE 5 MG TABLET PO PRN (08:31)
[2018-03-12] MEDS: DIVALPROEX 125 MG CAP.SPRINK PO SCH (08:31)
[2018-03-12] MEDS: clonazePAM 0.5 MG TABLET PO SCH (08:35)
[2018-03-12] MEDS: NYSTATIN 100,000 UNIT/GM TOPICAL CREAM 15GM TUBE. TP SCH (08:36)
[2018-03-12] MEDS ORDERED: GABAPENTIN 100 MG CAPSULE. PO SCH (09:00)
[2018-03-12] MEDS: HYDROcodone/APAP 5/325MG 1 TAB TABLET PO PRN (09:55)
--- NOTE | 2018-03-12 19:41 | PN ---
DATE: 03/10/2018 PSYCHIATRIC PROGRESS NOTE This late entry 03/10/2018 covers elements not covered in my initial note. SUBJECTIVE: I met with the patient in the evening. Overall, the patient has been somewhat withdrawn, spends much time in her room, frequently questions her medications, but some of this is understandable since she is cognitively reasonably intact. She slept 9 hours previous evening. She is not in pain, having any behavioral problems per nursing report. She was nervous around 2:00 p.m., but did better after that. REVIEW OF SYSTEMS: No CV, , pulmonary, eye, ENT system symptoms on review. MENTAL STATUS EXAM: Reasonably oriented. Speech is coherent, abstraction fair, computation impaired, language function intact, attention span short. Mood and affect somewhat withdrawn. LABORATORY DATA: Reviewed. IMPRESSION: Major depressive disorder; anxiety disorder, unspecified. Rest unchanged. PLAN: We will go ahead and reduce the a.m. Klonopin from 1 mg down to 0.5 mg. We previously reduced at bedtime Klonopin from 2 mg down to 1.5 mg. I have discussed at length with the patient about tapering the benzodiazepines further outpatient. Continue rest of the psychotropics unchanged for now per initial note. MICHELE BARKSDALE MD DR: REAL/rico JOB#: [id number] / [id number]
--- NOTE | 2018-03-12 19:44 | PN ---
DATE: 03/11/2018 PSYCHIATRIC PROGRESS NOTE This late entry 03/11/2018 covers elements not covered in my initial note. SUBJECTIVE: I met with the patient in the evening and staffed at a treatment team meeting with the entire team in the morning. The patient attended the treatment team meeting herself and the patient's daughter, Lena, attended the conference as well. We had a lengthy discussion about the patient's diagnosis, progress, current psychotropics, outpatient followup at the local [facility] close to her home. She slept 8 hours previous evening, doing somewhat better. She is tolerating the taper down of Klonopin. Daughter and patient questioned the need for gabapentin that was initiated since she has come here, currently at 100 mg b.i.d. and we will plan to taper and stop it. We also discussed the patient starting psychotherapy with Dr. Dill at the [facility] post-discharge. REVIEW OF SYSTEMS: Some impairment of ambulation with walker. No CV, , pulmonary, eye system symptoms on review. MENTAL STATUS EXAM: The patient is reasonably oriented. Speech is coherent, has some latency. Abstraction fair, computation impaired, language function intact, attention span short. Mood and affect still somewhat anxious, dysphoric at times, but showing improvement. No suicidal ideation. LABORATORY DATA: Reviewed. IMPRESSION: Major depressive disorder, recurrent, in partial remission; anxiety disorder, unspecified. PLAN: Continue current psychotropics with the gradual taper down of the Klonopin. We look at the transition home to outpatient treatment in the next day or two. MICHELE BARKSDALE MD DR: REAL/rico JOB#: [id number] / [id number]
--- NOTE | 2018-03-13 21:54 | PDOC ---
Exam Note: Jimmy Note: Late entry for date of service February.Please also refer to the separate dictated note~for this date of service dictated separately.~Patient seen individually. Discussed the patient with Nursing staff reviewed the chart.~ Reviewed interim history and current functioning. Reviewed vital signs,~Labs/ Radiology~and current medications noted below. Continue current treatment with the changes noted in the dictated addendum note Assessment: Vital Signs: VS - Last 72 Hours, by Label Date Time Temp Pulse Resp B/P (MAP) Pulse Ox O2 Delivery O2 Flow Rate FiO2 03/12/18 08:31 62 123/82 03/12/18 08:30 62 123/82 03/12/18 08:30 62 123/82 03/12/18 06:22 97.9 62 18 123/82 (96) 98 Room Air 03/11/18 19:31 63 114/80 03/11/18 19:29 18 97 Room Air 03/11/18 15:29 97.8 63 16 114/80 (91) 97 Room Air 03/11/18 15:21 18 97 Room Air 03/11/18 07:56 60 115/71 03/11/18 05:35 97.7 60 16 115/71 (86) 97 Vital Signs Date Time Temp Pulse Resp B/P (MAP) Pulse Ox O2 Delivery O2 Flow Rate FiO2 03/12/18 08:31 62 123/82 03/12/18 06:22 97.9 18 98 Room Air I&O Intake and Output 03/13/18 07:01 Intake Total 240 ml Balance 240 ml Intake Oral 240 ml Current Medications: Meds: Current Medications Acetaminophen (Tylenol) 650 mg PRN Q6HRS PRN PO PAIN / TEMP Last administered on 02/28/18at 10:37; Start 02/27/18 at 14:45; Stop 03/12/18 at 12:46; Status DC Multi-Ingredient Ointment (Analgesic [place]) 1 tree PRN QID PRN TP MUSCLE PAIN; Start 02/27/18 at 14:45; Stop 03/12/18 at 12:46; Status DC Al Hydroxide/Mg Hydroxide (Mylanta Plus Xs) 15 ml PRN AFTMEALHC PRN PO DYSPEPSIA Last administered on 03/10/18at 23:38; Start 02/27/18 at 14:45; Stop 03/12/18 at 12:46; Status DC Magnesium Hydroxide (Milk Of Magnesia) 2,400 mg PRN QHS PRN PO CONSTIPATION; Start 02/27/18 at 14:45; Stop 03/12/18 at 12:46; Status DC Acetaminophen/ Hydrocodone Bitart (Lortab 5/325) 1 tab PRN Q6HRS PRN PO PAIN; Start 02/27/18 at 15:15; Status UNV Non-Formulary Medication (Amlodipine Besylate ) 1 tab DAILY PO ; Start 02/28/18 at 09:00; Stop 02/28/18 at 09:00; Status DC Docusate Sodium (Colace) 100 mg DAILY PO Last administered on 03/12/18at 08:30 ; Start 02/27/18 at 15:30; Stop 03/12/18 at 12:46; Status DC Non-Formulary Medication (Levothyroxine Sodium ) 1 tab DAILY06 PO ; Start at 06:00; Stop 02/28/18 at 06:00; Status DC Losartan Potassium (Cozaar) 50 mg DAILY PO ; Start 02/28/18 at 09:00; Stop 02/28 at 09:00; Status DC Non-Formulary Medication (Metoprolol Succinate (Metoprolol Succinate ( Xl ))) 1 tab DAILY PRN PO PER PROTOCOL; Start 02/27/18 at 15:15; Stop 02/27/18 at 16:10 ; Status DC Polyethylene Glycol (miraLAX) 17 gm DAILY PO ; Start 02/28/18 at 09:00; Stop at 09:00; Status DC Sucralfate (Carafate) 1 gm QID PO ; Start 02/27/18 at 21:00; Stop 02/27/18 at 21 :00; Status DC Mirtazapine (Remeron) 30 mg 1700 PO ; Start 02/27/18 at 17:00; Stop 02/27/18 at 17:00; Status DC Non-Formulary Medication (Alprazolam (Xanax)) 1 tab QID PO ; Start 02/27/18 at 17:00; Stop 02/27/18 at 17:00; Status DC Non-Formulary Medication (Clonazepam (Klonopin)) 1 tab QID PRN PO ANXIETY / AGITATION; Start 02/27/18 at 15:15; Stop 02/27/18 at 16:18; Status DC Non-Formulary Medication (Paroxetine Hcl ) 1 tab DAILY PO ; Start 02/28/18 at 09 :00; Stop 02/28/18 at 09:00; Status DC Losartan Potassium (Cozaar) 50 mg BID PO Last administered on 03/12/18at 08:30 ; Start 02/27/18 at 21:00; Stop 03/12/18 at 12:46; Status DC Mirtazapine (Remeron) 45 mg HS PO Last administered on 03/11/18at 19:30; Start 02/27/18 at 21:00; Stop 03/12/18 at 12:46; Status DC Metoprolol Tartrate (Lopressor) 25 mg DAILY PRN PO HYPERTENSION, SEE COMMENTS Last administered on 03/12/18at 08:30; Start 02/27/18 at 16:15; Stop 03/12/18 at 12:46; Status DC Senna/Docusate Sodium (Senna Plus) 1 tab DAILY PRN PO CONSTIPATION; Start 02/27 at 16:15; Stop 02/28/18 at 17:15; Status DC Clonazepam (KlonoPIN) 1 mg QID PO Last administered on 02/28/18at 14:00; Start 02/27/18 at 17:00; Stop 02/28/18 at 15:39; Status DC Amlodipine Besylate (Norvasc) 5 mg DAILY PRN PO BP > 120/80 Last administered on 03/12/18at 08:31; Start 02/28/18 at 09:00; Stop 03/12/18 at 12:46; Status DC Levothyroxine Sodium (Synthroid) 25 mcg DAILY06 PO Last administered on at 05:25; Start 02/28/18 at 06:00; Stop 03/12/18 at 12:46; Status DC Amlodipine Besylate (Norvasc) 10 mg DAILY PRN PO GIVE FOR BP > 133/89 Last administered on 03/07/18at 07:47; Start 02/28/18 at 09:00; Stop 03/12/18 at 12: 46; Status DC Acetaminophen/ Hydrocodone Bitart (Lortab 5/325) 1 tab PRN Q6HRS PRN PO PAIN Last administered on 03/12/18at 09:55; Start 02/28/18 at 12:00; Stop 03/12/18 at 12:46; Status DC Clonazepam (KlonoPIN) 1 mg DAILY PO Last administered on 03/10/18at 08:02; Start 03/01/18 at 09:00; Stop 03/10/18 at 18:19; Status DC Clonazepam (KlonoPIN) 2 mg HS PO Last administered on 03/08/18at 20:38; Start 02/28/18 at 21:00; Stop 03/09/18 at 16:32; Status DC Gabapentin (Neurontin) 100 mg BID PO Last administered on 03/11/18at 07:56; Start 02/28/18 at 21:00; Stop 03/11/18 at 10:32; Status DC Senna/Docusate Sodium (Senna Plus) 1 tab DAILY PO Last administered on at 07:51; Start 02/28/18 at 17:15; Stop 03/05/18 at 10:09; Status DC Buspirone HCl (Buspar) 5 mg QID PO Last administered on 03/04/18at 07:56; Start 03/01/18 at 17:00; Stop 03/04/18 at 11:11; Status DC Divalproex Sodium (Depakote Sprinkles) 125 mg BID PO Last administered on 03/04at 07:56; Start 03/01/18 at 21:00; Stop 03/04/18 at 11:12; Status DC Buspirone HCl (Buspar) 10 mg TID PO Last administered on 03/12/18at 08:30; Start 03/04/18 at 14:00; Stop 03/12/18 at 12:46; Status DC Divalproex Sodium (Depakote Sprinkles) 125 mg DAILY PO Last administered on at 08:31; Start 03/05/18 at 09:00; Stop 03/12/18 at 12:46; Status DC Divalproex Sodium (Depakote Sprinkles) 250 mg HS PO Last administered on at 19:29; Start 03/04/18 at 21:00; Stop 03/12/18 at 12:46; Status DC Senna/Docusate Sodium (Senna Plus) 1 tab PRN DAILY PO ; Start 03/06/18 at 09: 00; Stop 03/12/18 at 12:46; Status DC Vitamin D (Vitamin D3) 50,000 unit WEEKLY PO Last administered on 03/06/18at 07 :52; Start 03/06/18 at 09:00; Stop 03/12/18 at 12:46; Status DC Pantoprazole Sodium (Protonix) 40 mg DAILYAC PO Last administered on at 06:20; Start 03/06/18 at 07:30; Stop 03/08/18 at 09:18; Status DC Loperamide HCl (Imodium) 2 mg PRN Q15MIN PRN PO DIARRHEA Last administered on 03/06/18at 10:54; Start 03/06/18 at 10:30; Stop 03/12/18 at 12:46; Status DC Pantoprazole Sodium (Protonix) 40 mg DAILY06 PO Last administered on at 05:25; Start 03/09/18 at 06:00; Stop 03/12/18 at 12:46; Status DC Ibuprofen (Motrin) 400 mg TIDWMEALS PO Last administered on 03/10/18at 11:53; Start 03/09/18 at 17:00; Stop 03/10/18 at 18:17; Status DC Clonazepam (KlonoPIN) 1.5 mg QHS PO Last administered on 03/11/18at 19:39; Start 03/09/18 at 21:00; Stop 03/12/18 at 12:46; Status DC Trazodone HCl (Desyrel) 50 mg QHS PO Last administered on 03/11/18at 19:31; Start 03/09/18 at 21:00; Stop 03/12/18 at 12:46; Status DC Trazodone HCl (Desyrel) 50 mg PRN QHS PRN PO insomnia; Start 03/09/18 at 16:30 ; Stop 03/12/18 at 12:46; Status DC Clonazepam (KlonoPIN) 0.5 mg DAILY PO Last administered on 03/12/18at 08:35; Start 03/11/18 at 09:00; Stop 03/12/18 at 12:46; Status DC Gabapentin (Neurontin) 100 mg DAILY PO Last administered on 03/12/18at 08:35; Start 03/12/18 at 09:00; Stop 03/12/18 at 12:47; Status DC Nystatin (Nystop) 1 tree PRN BID PRN TP ITCHING; Start 03/11/18 at 10:45; Stop 03/12/18 at 12:47; Status DC Nystatin (Mycostatin) 1 tree BID TP Last administered on 03/11/18at 19:31; Start 03/11/18 at 11:15; Stop 03/12/18 at 12:47; Status DC Docusate Sodium (Colace) 100 mg 1X ONCE PO Last administered on 03/11/18at 19: 29; Start 03/11/18 at 21:00; Stop 03/11/18 at 21:01; Status DC Active Scripts Active Reported Protonix (Pantoprazole Sodium) 40 Mg Tablet.dr 40 Mg PO DAILY06 Nystatin 100,000 Unit/1 Ml Oral.susp 1 Tree TP BID Nystop (Nystatin) 60 Gm Powder 1 Tree TP PRN BID PRN Analgesic [place] (Methyl Salicylate/Menthol) 28 Gm Oint...g. 1 Tree TP PRN QID PRN Trazodone Hcl 50 Mg Tablet 50 Mg PO PRN QHS PRN Trazodone Hcl 50 Mg Tablet 50 Mg PO QHS Buspirone Hcl 10 Mg Tablet 10 Mg PO TID Clonazepam 1 Mg Tablet 1.5 Mg PO QHS Clonazepam 0.5 Mg Tablet 0.5 Mg PO DAILY Milk Of Magnesia (Magnesium Hydroxide) 2,400 Mg/10 Ml Oral.susp 2,400 Mg PO PRN QHS PRN Mag-Al Plus Suspension (Mag Hydrox/Al Hydrox/Simeth) 30 Ml Oral.susp 30 Ml PO PRN AFTMEALHC PRN Loperamide (Loperamide Hcl) 2 Mg Capsule 2 Mg PO PRN Q15MIN PRN Hydrocodone-Acetamin 5-325 mg (Hydrocodone/Acetaminophen) 1 Each Tablet 1 Each PO PRN Q6HRS PRN Gabapentin (Gabapentin) 100 Mg Capsule 100 Mg PO DAILY 3 Days Colace (Docusate Sodium) 100 Mg Capsule 100 Mg PO DAILY Depakote Sprinkle (Divalproex Sodium) 125 Mg Cap.sprink 250 Mg PO QHS Depakote Sprinkle (Divalproex Sodium) 125 Mg Cap.sprink 125 Mg PO DAILY D3-50 (Cholecalciferol (Vitamin D3)) 50,000 Unit Capsule 50,000 Unit PO QSA Tylenol (Acetaminophen) 325 Mg Tablet 650 Mg PO PRN Q6HRS PRN Amlodipine Besylate 10 Mg Tablet 1 Tab PO DAILY PRN Metoprolol Tartrate 25 Mg Tablet 1 Tab PO DAILY PRN Senokot-S Tablet (Sennosides/Docusate Sodium) 1 Each Tablet 1 Tab PO DAILY PRN Remeron (Mirtazapine) 30 Mg Tablet 45 Mg PO HS Losartan Potassium 100 Mg Tablet 50 Mg PO BID Levothyroxine Sodium 25 Mcg Tablet 1 Tab PO DAILY06 Amlodipine Besylate 5 Mg Tablet 5 Mg PO DAILY PRN I have reviewed the current psychotropics carefully including drug interactions. Risk benefit ratio favors no change other than as noted in my dictated progress note. Diagnosis: Problems: (1) Mood swings (2) Substance abuse (3) Depression MICHELE BARKSDALE MD Mar 13, 2018 21:54
--- NOTE | 2018-03-14 09:59 | DS ---
DATE OF DISCHARGE: 03/12/2018 DISCHARGE SUMMARY/PSYCHIATRIC PROGRESS NOTE IDENTIFYING DATA: The patient is an 82-year-old female referred to us by her primary care physician while she was living at home on account of increased anxiety, racing thoughts, depression. Her 4 years ago and reportedly she is not "dealt with that yet." She was extremely depressed, hopeless, helpless, worthless with marked anxiety. She had failed outpatient psychiatric interventions resulting in this referral. SIGNIFICANT FINDINGS AND CLINICAL COURSE: Following admission, the patient was seen daily individually by myself from a psychiatric standpoint and by Dr. Parson, who initially admitted her during my absence. She is extremely depressed, anxious, despite being on rather large dosages of Klonopin 1 mg a.m., 2 mg at bedtime, which were quite high, given her age. Dr. Parson initiated Neurontin 100 mg b.i.d. for anxiety, but when I took over her care she was not agreeable to continuing this and we tapered and stopped it. She complained of sedation from it. She is also on Remeron 45 mg at bedtime, BuSpar 10 mg 3 times a day. Depakote was initiated at 125 mg a.m., 250 at bedtime; trazodone p.r.n. Gradually her mood appeared to improve. She was less anxious, less labile. Denies suicidal ideation and was transferred to outpatient care. CONDITION AT DISCHARGE: Improved prior to discharge on 03/12/2018. REVIEW OF SYSTEMS: Ambulation impaired with walker. No CV, , pulmonary, eye system symptoms on review. MENTAL STATUS EXAM: Oriented to herself and situation. Speech coherent, abstraction fair, computation impaired, language function intact, attention span short. Mood and affect improved. FINAL DIAGNOSES: Major depressive disorder, recurrent, in partial remission; anxiety disorder, unspecified; impulse control disorder. Rest unchanged from admission. DISCHARGE MEDICATIONS: Please refer to the [facility]. PLAN: Should be defer the taper and ultimately perhaps stop the Klonopin, which we had reduced down to 0.5 mg a.m., 1.5 at bedtime prior to discharge. Time for discharge day management greater than 30 minutes. MICHELE BARKSDALE MD DR: REAL/rico JOB#: [id number] / [id number]
== END 2018-03-12 11:15 | disposition home or self-care (01) | DRG 885 ==
LOC: ER 11:55 → GEROPSY 14:12
PROVIDERS: ADMIT Psychiatry & Neurology Psychiatry; ATTEND Psychiatry & Neurology Psychiatry
DX: F33.41 Major depressive disorder, recurrent, in partial remission (principal); F13.20 Sedative, hypnotic or anxiolytic dependence, uncomplicated; F41.1 Generalized anxiety disorder; E03.9 Hypothyroidism, unspecified; E78.5 Hyperlipidemia, unspecified; F09 Unspecified mental disorder due to known physiological condition; G35 Multiple sclerosis; F63.9 Impulse disorder, unspecified; G89.29 Other chronic pain; I10 Essential (primary) hypertension; I25.10 Atherosclerotic heart disease of native coronary artery without angina pectoris; K21.9 Gastro-esophageal reflux disease without esophagitis; K58.9 Irritable bowel syndrome, unspecified; Z02.9 Encounter for administrative examinations, unspecified; Z80.1 Family history of malignant neoplasm of trachea, bronchus and lung; Z82.49 Family history of ischemic heart disease and other diseases of the circulatory system; Z86.718 Personal history of other venous thrombosis and embolism; Z86.73 Personal history of transient ischemic attack (TIA), and cerebral infarction without residual deficits; Z95.5 Presence of coronary angioplasty implant and graft; Z90.721 Acquired absence of ovaries, unilateral; Z90.49 Acquired absence of other specified parts of digestive tract; Z88.2 Allergy status to sulfonamides; Z88.8 Allergy status to other drugs, medicaments and biological substances
CPT/HCPCS: 36415; 73110; 73610; 80053; 80061; 81001; 82306; 82607; 83036; 83540; 83550; 83735; 84436; 84443; 84480; 84484; 85025; 85379; 86592; 87086; 93005; 99285-25